=== PATIENT | male | born 1950 | race American Indian/Alaskan Native ===

== ENCOUNTER 2020-06-03 10:50 | Outpatient (REF) | payer OTHER, SELFPAY | END 2020-06-03 10:51 | disposition home or self-care (01) | LOC: HO.LAB 10:50 | PROVIDERS: Visit Provider Internal Medicine | DX: Z20.828 Contact with and (suspected) exposure to other viral communicable diseases (principal) | CPT/HCPCS: C9803; U0003 ==

== ENCOUNTER 2020-06-17 11:30 | Outpatient (REF) | payer OTHER, SELFPAY | END 2020-06-17 11:31 | disposition home or self-care (01) | LOC: HO.LAB 11:30 | PROVIDERS: PCP Internal Medicine; Visit Provider Internal Medicine | DX: Z20.828 Contact with and (suspected) exposure to other viral communicable diseases (principal) | CPT/HCPCS: 36415; C9803; U0003 ==

== ENCOUNTER → 2020-06-25 14:15 | Outpatient (BNVA) | payer OTHER, SELFPAY | PROVIDERS: PCP Internal Medicine; Visit Provider Internal Medicine Cardiovascular Disease | DX: I73.9 Peripheral vascular disease, unspecified (principal) | CPT/HCPCS: 93005; 99202 ==

== ENCOUNTER 2020-07-08 13:31 | Outpatient (REF) | payer OTHER, SELFPAY ==
--- NOTE | 2020-07-08 13:37 | US_ITS ---
EXAMINATION: COLOR-FLOW DUPLEX IMAGING OF THE BILATERAL LOWER EXTREMITY ARTERIAL SYSTEM. VELOCITY MEASUREMENTS THROUGHOUT THE FEMORAL ARTERIES WITH ANKLE-BRACHIAL PERIPHERAL ARTERIAL TESTING. CLINICAL INFORMATION: This is a 69-year-old male with peripheral vascular disease, unspecified. Interventional Radiologist: Brett Chakraborty M.D., F.S.I.R., F.A.C.R. RIGHT FEMORAL RUNOFF VELOCITIES: The right common femoral artery measures 149 cm/s and biphasic. The right profunda femoral artery is 303 cm/s and is biphasic. Right proximal superficial femoral artery measures 189 cm/s and biphasic. Mid superficial femoral artery is 341 cm/s and biphasic. Distal right superficial femoral artery measures 114 cm/s and is biphasic. Right popliteal velocity measures 62 cm/s and is biphasic. The posterior tibial artery velocity measures 20 cm/s and was biphasic. LEFT FEMORAL RUNOFF VELOCITIES: The left common femoral artery measures 180 cm/s and biphasic. The left profunda femoral artery is 166 cm/s and is biphasic. Left proximal superficial femoral artery is occluded. Mid superficial femoral artery is 96 cm/s and biphasic. Distal left superficial femoral artery measures 46 cm/s and is biphasic. Left popliteal velocity measures 44 cm/s and is biphasic. The posterior tibial artery velocity measures 17 cm/s and was monophasic. US/US arterial duplex LE BI IMPRESSION: 1. There is a high-grade hemodynamically significant stenosis in the mid right superficial femoral artery. 2. There is a high-grade hemodynamically significant stenosis in the proximal right profunda femoral artery. 3. There is occlusion of the proximal left superficial femoral artery.
== END 2020-07-08 13:32 | disposition home or self-care (01) ==
LOC: HO.US 13:31
PROVIDERS: PCP Internal Medicine; Visit Provider Internal Medicine Cardiovascular Disease
DX: I73.9 Peripheral vascular disease, unspecified (principal)
CPT/HCPCS: 93925

== ENCOUNTER → 2020-07-21 10:11 | Outpatient (BNVA) | payer OTHER, SELFPAY | PROVIDERS: PCP Internal Medicine; Visit Provider Internal Medicine Cardiovascular Disease | DX: I73.9 Peripheral vascular disease, unspecified (principal); Z95.1 Presence of aortocoronary bypass graft | CPT/HCPCS: 99212 ==

== ENCOUNTER → 2020-09-18 10:05 | Outpatient (BNVA) | payer OTHER, SELFPAY | PROVIDERS: PCP Internal Medicine; Visit Provider Internal Medicine Cardiovascular Disease | DX: I20.8 Other forms of angina pectoris (principal); I73.9 Peripheral vascular disease, unspecified; Z95.1 Presence of aortocoronary bypass graft | CPT/HCPCS: 99212 ==

== ENCOUNTER 2020-12-16 08:22 | Outpatient (REF) | payer MEDICARE, SELFPAY ==
[2020-12-16 09:23] LABS: Alanine Aminotransferase 13 U/L (0-40); Albumin Level 4.1 g/dL (3.5-5.0); Alkaline Phosphatase 58 U/L (39-117); Anion Gap 12 (12-20); Aspartate Amino Transferase 21 U/L (5-37); Bilirubin Total 0.6 mg/dL (0.0-1.0); Blood Urea Nitrogen 20 mg/dL (9-16); Calcium 9.6 mg/dL (8.4-10.2); Carbon Dioxide 27 mmol/L (22-29); Chloride 106 mmol/L (96-108); Cholesterol 109 mg/dL; Estimated Glomerular Filt Rate > 60; Glucose Fasting 100 mg/dL (60-99); HDL Cholesterol 38 mg/dL; Potassium 4.7 mmol/L (3.3-5.1); Sodium 140 mmol/L (135-145); Total Protein 7.1 g/dL (6.5-8.0)
[2020-12-16 09:28] LABS: LDL Cholesterol Calculated 56 mg/dl; Triglycerides 76 mg/dL
== END 2020-12-16 08:23 | disposition home or self-care (01) ==
LOC: HO.LAB 08:22
PROVIDERS: PCP Internal Medicine; Visit Provider Internal Medicine
DX: E78.5 Hyperlipidemia, unspecified (principal); I10 Essential (primary) hypertension
CPT/HCPCS: 36415; 80053; 80061

== ENCOUNTER → 2021-01-07 13:45 | Outpatient (BNVA) | payer MEDICARE, SELFPAY | PROVIDERS: PCP Internal Medicine; Referring Provider Internal Medicine; Visit Provider Internal Medicine Cardiovascular Disease | DX: I20.8 Other forms of angina pectoris (principal); Z95.1 Presence of aortocoronary bypass graft; I73.9 Peripheral vascular disease, unspecified | CPT/HCPCS: 93005; 99212 ==

== ENCOUNTER → 2021-02-06 09:30 | Outpatient (REF) | payer MEDICARE, SELFPAY | LOC: HO.CARD 09:30 | PROVIDERS: Visit Provider Internal Medicine Cardiovascular Disease | DX: Z13.89 Encounter for screening for other disorder (principal) ==

== ENCOUNTER → 2021-02-20 09:00 | Outpatient (REF) | payer MEDICARE, SELFPAY ==
--- NOTE | 2021-02-20 08:59 | CA_ITS ---
Transthoracic Echocardiogram Patient (Last, First, Middle): Nate Lepe, Gender: Male Date of : 1950 Age: 70 Procedure Date: 02/20/2021 Procedure Type: Transthoracic Echocardiogram Location: OP Height: 165.1 cm Weight: 52.16 kg BSA: 1.56 m2 Heart Rate: bpm BP: 142 / 70 mmHg Mail Handler Equipment Operator: YR/CP Referring MD: Jus Callejas MD Symptoms: I42.9 - Cardiomyopathy, unspecified Study Quality: Fair Conclusions: - The left ventricular systolic function is low normal. The visually estimated ejection fraction is between 50-55%. - The basal inferior and basal inferoseptal segments are akinetic. - There is mild to moderate mitral valve regurgitation. Findings Procedure Information The patient declines contrast. Left Ventricle Normal left ventricular cavity size. There is normal left ventricular wall thickness. The left ventricular systolic function is low normal. The visually estimated ejection fraction is between 50-55%. There is evidence of regional wall motion abnormalities. Abnormal diastolic function is noted. Spectral Doppler is indicative of a pseudonormal filling pattern. E/E prime ratio is between 8 and 15 consistent with indeterminate filling pressures. Wall Motion Rest Echo Findings The basal inferior and basal inferoseptal segments are akinetic. Right Ventricle Normal right ventricular cavity size and systolic function. Atria The left atrium is normal in size. The right atrium is mildly dilated. Aortic Valve There is a normal trileaflet aortic valve. There is no aortic valve stenosis. There is no aortic valve regurgitation. Mitral Valve Normal mitral valve structure and function. There is mild to moderate mitral valve regurgitation. There is no mitral valve stenosis. Pulmonic Valve Normal pulmonic valve structure and function. There is trace pulmonic valve regurgitation. Tricuspid Valve Normal tricuspid valve structure. There is mild tricuspid valve regurgitation. Normal right atrial pressure. There is no evidence of pulmonary hypertension. Great Vessels All visible segments of the aorta are normal in size. The visualized portions of the pulmonary artery and branches are normal. Venous The inferior vena cava is normal in size and collapses greater than 50% with inspiration. Pericardium/Pleural There is no evidence of pericardial effusion. Prior Study Comparison No prior study available for comparison. Measurements 2D Linear Measurements IVSd: 0.77 0.6-0.9/0.6-1.0 cm LVIDd: 4.85 3.9-5.3/4.2-5.9 cm LVIDd Index: 3.11 2.4-3.2/2.2-3.1 cm/m2 LVIDs: 3.48 2.0-3.6 cm LVPWd: 0.77 0.7-1.1 cm Ao Root: 3.40 2.1-3.5 cm LA Diam: 3.60 2.7-3.8/3.0-4.0 cm LAIDs Index: 2.31 1.5-2.3 cm/m2 LV Mass: 152.83 67-162/88-224 g LV Mass Index: 97.97 43-95/49-115 g/m2 LVOT Diam: 2.10 3.0+(-)1.3 cm 2D Systolic Function EF 4C: 62.30 >55% EF 2C: 49.10 >55% Mitral Valve MV Pk E: 0.83 MV PK A: 0.93 MV Decel Time: 147.00 E/A: 0.90 E'Lateral: 12.00 E'Medial: 6.96 E/E' Med: 11.90 E/E' Lat: 6.90 PHT: 43.00 MVA PHT: 5.12 Decel Worth: 5.65 Aortic Valve AoV Pk Rodrigo: 1.03 AoV Mn Rodrigo: 0.80 AoV VTI: 0.26 AoV Pk Grad: 4.00 Aov Mn Grad: 3.00 JUAQUIN Cont.VTI: 2.11 LVOT LVOT Pk Rodrigo: 0.63 LVOT Mn Rodrigo: 0.46 LVOT VTI: 0.16 LVOT Pk Grad: 2.00 LVOT Mn Grad: 1.00 LVOT Diam: 2.10 LVOT Area: 3.46 Diastolic Function MV Pk E: 0.83 MV Pk A: 0.93 E/A: 0.90 E'Medial: 6.96 E/E' Med: 11.90 E' Laterial: 12.00 E/E' Lat: 6.90 Right Ventricle TAPSE (mm): 1.69 TVS' Rodrigo: 8.49 Tricuspid Valve TR Pk Rodrigo: 2.51 TR Pk Grad: 25.00 RA Press: 3.00 RVSP: 28.00 Great Vessels Aorta Ao Root-2D: 3.40 2.0-3.7 cm Ao Asc: 3.10 2.1-3.4 cm Ao Arch: 2.60 Updated in Other Vendor System with Status of Final Jus Callejas MD electronically signed on 02/20/2021 9:01:17 PM with status of Final
== END ==
LOC: HO.CARD 09:00
PROVIDERS: Visit Provider Internal Medicine Cardiovascular Disease
DX: I42.9 Cardiomyopathy, unspecified (principal)
CPT/HCPCS: 93306

== ENCOUNTER → 2021-04-20 10:45 | Outpatient (BNVA) | payer MEDICARE, SELFPAY | PROVIDERS: PCP Internal Medicine; Referring Provider Internal Medicine; Visit Provider Internal Medicine Cardiovascular Disease | DX: I20.8 Other forms of angina pectoris (principal); I73.9 Peripheral vascular disease, unspecified; Z95.1 Presence of aortocoronary bypass graft | CPT/HCPCS: 99212 ==

== ENCOUNTER 2021-07-01 09:04 | Outpatient (REF) | payer MEDICARE, SELFPAY ==
[2021-07-01 11:05] LABS: Alanine Aminotransferase 20 U/L (0-40); Albumin Level 4.3 g/dL (3.5-5.0); Alkaline Phosphatase 68 U/L (39-117); Anion Gap 12 (12-20); Aspartate Amino Transferase 22 U/L (5-37); Bilirubin Total 0.8 mg/dL (0.0-1.0); Blood Urea Nitrogen 28 mg/dL (9-16); Calcium 9.9 mg/dL (8.4-10.2); Carbon Dioxide 27 mmol/L (22-29); Chloride 109 mmol/L (96-108); Cholesterol 126 mg/dL; Estimated Glomerular Filt Rate > 60; Glucose Fasting 113 mg/dL (60-99); HDL Cholesterol 46 mg/dL; LDL Cholesterol Calculated 67 mg/dl; Potassium 5.1 mmol/L (3.3-5.1); Sodium 143 mmol/L (135-145); Total Protein 7.5 g/dL (6.5-8.0); Triglycerides 66 mg/dL
== END 2021-07-01 09:05 | disposition home or self-care (01) ==
LOC: HO.LAB 09:04
PROVIDERS: PCP Internal Medicine; Visit Provider Internal Medicine
DX: I20.8 Other forms of angina pectoris (principal); E78.5 Hyperlipidemia, unspecified
CPT/HCPCS: 36415; 80053; 80061

== ENCOUNTER → 2021-08-10 13:53 | Outpatient (BNVA) | payer MEDICARE, SELFPAY | PROVIDERS: PCP Internal Medicine; Referring Provider Internal Medicine; Visit Provider Internal Medicine Cardiovascular Disease | DX: I20.8 Other forms of angina pectoris (principal); I70.203 Unspecified atherosclerosis of native arteries of extremities, bilateral legs; Z95.1 Presence of aortocoronary bypass graft | CPT/HCPCS: 99212 ==

== ENCOUNTER 2021-12-25 07:33 | Outpatient (REF) | payer OTHER, SELFPAY ==
[2021-12-25 08:56] LABS: Alanine Aminotransferase 18 U/L (0-40); Albumin Level 4.3 g/dL (3.5-5.0); Alkaline Phosphatase 65 U/L (39-117); Anion Gap 13 (12-20); Aspartate Amino Transferase 24 U/L (5-37); Bilirubin Total 1.1 mg/dL (0.0-1.0); Blood Urea Nitrogen 18 mg/dL (9-16); Calcium 9.3 mg/dL (8.4-10.2); Carbon Dioxide 25 mmol/L (22-29); Chloride 110 mmol/L (96-108); Cholesterol 114 mg/dL; Estimated Glomerular Filt Rate > 60; Glucose Fasting 99 mg/dL (60-99); HDL Cholesterol 43 mg/dL; LDL Cholesterol Calculated 59 mg/dl; Potassium 4.6 mmol/L (3.3-5.1); Sodium 143 mmol/L (135-145); Total Protein 7.2 g/dL (6.5-8.0); Triglycerides 61 mg/dL
== END 2021-12-25 07:34 | disposition home or self-care (01) ==
LOC: HO.LAB 07:33
PROVIDERS: PCP Internal Medicine; Visit Provider Internal Medicine
DX: I25.10 Atherosclerotic heart disease of native coronary artery without angina pectoris (principal); E78.5 Hyperlipidemia, unspecified
CPT/HCPCS: 36415; 80053; 80061

== ENCOUNTER → 2022-03-17 08:52 | Outpatient (BNVA) | payer OTHER, SELFPAY | PROVIDERS: PCP Internal Medicine; Visit Provider Internal Medicine Cardiovascular Disease | DX: I20.8 Other forms of angina pectoris (principal); I73.9 Peripheral vascular disease, unspecified; Z95.1 Presence of aortocoronary bypass graft | CPT/HCPCS: 93005; 99212 ==

== ENCOUNTER → 2022-07-21 08:43 | Outpatient (BNVA) | payer OTHER, SELFPAY | PROVIDERS: PCP Internal Medicine; Referring Provider Internal Medicine; Visit Provider Internal Medicine Cardiovascular Disease | DX: I20.8 Other forms of angina pectoris (principal); I73.9 Peripheral vascular disease, unspecified; R63.0 Anorexia; Z95.1 Presence of aortocoronary bypass graft | CPT/HCPCS: 99212 ==

== ENCOUNTER 2022-10-19 07:22 | Outpatient (REF) | payer OTHER, SELFPAY ==
[2022-10-19 12:06] LABS: Alanine Aminotransferase 12 U/L (0-40); Albumin Level 3.9 g/dL (3.5-5.0); Alkaline Phosphatase 57 U/L (39-117); Anion Gap 13 (12-20); Aspartate Amino Transferase 20 U/L (5-37); Bilirubin Total 0.8 mg/dL (0.0-1.0); Blood Urea Nitrogen 18 mg/dL (9-16); Carbon Dioxide 29 mmol/L (22-29); Chloride 107 mmol/L (96-108); Cholesterol 159 mg/dL; Estimated Glomerular Filt Rate > 60; Glucose Fasting 99 mg/dL (60-99); HDL Cholesterol 39 mg/dL; LDL Cholesterol Calculated 105 mg/dl; Potassium 3.8 mmol/L (3.3-5.1); Sodium 145 mmol/L (135-145); Total Protein 6.8 g/dL (6.5-8.0); Triglycerides 76 mg/dL
== END 2022-10-19 07:23 | disposition home or self-care (01) ==
LOC: HO.LAB 07:22
PROVIDERS: PCP Internal Medicine; Visit Provider Internal Medicine
DX: E78.5 Hyperlipidemia, unspecified (principal); I25.10 Atherosclerotic heart disease of native coronary artery without angina pectoris
CPT/HCPCS: 36415; 80053; 80061

== ENCOUNTER → 2022-12-15 08:48 | Outpatient (BNVA) | payer OTHER, SELFPAY | PROVIDERS: Visit Provider Internal Medicine Cardiovascular Disease | DX: R63.0 Anorexia (principal); I20.8 Other forms of angina pectoris | CPT/HCPCS: 93005; 99212 ==

== ENCOUNTER 2022-12-22 08:48 | Outpatient (AMB) | payer OTHER, SELFPAY ==
--- NOTE | 2022-12-22 08:50 | MHC.OFFVIS ---
Intake Vital Signs 12/22/22 08:53 Height 5 ft 5 in Weight 114 lb BMI 19.0 BP 142/65 H Blood Pressure Location Lt brachial Position Sitting Pulse 68 Intake Visit Reasons: Unintentional weight loss? Intake Note: Nate presents in the office as a new patient for weight loss. CC: He states that he has been losing weight. He states he has issues swallowing sometimes and loss of appetite. Director Social Required: Yes Director Social Name: [id number] Aturo Allergies No Known Allergies Allergy (Verified 12/22/22 08:53) HPI HPI Comments History of Present Illness Details 72 y.o M with PMH of CAD s/p CABG 2013, PVD, who is here for loss of appetite. Patient was seen with the help of a educational interpreter. Patient reports that every summer, he notices a decrease in his appetite in starts to prefer smaller meals, and then this returns to baseline when it is fall time. With this he also loses a few lb, and then regained stem during the winter time- which is also corroborated in the chart. No abdominal pain, nausea, vomiting, early satiety. He is unsure of the degree of weight loss so far, as does not weigh himself at home. Otherwise, has not noticed his clothing getting loose on him. He also does not report any obvious pain or difficulty swallowing however says that since 2012 (his CABG) has had intermittent sensation of food getting stuck. Pt has never had a colonoscopy and is adamant to not have one in future either. Weight curve 2020 to 2022. PFSH Surgical History S/P CABG x 3 Family History Father No problems noted. Mother No problems noted. Social History Housing: House Alcohol intake: never Patient Tobacco Use Status: Former Tobacco user Quit Date: 2012 Years Smoked: 30+ e-Cigarette/Vaping Use: Never Used Second Hand Smoke Exposure: No service: No Current occupational status: disabled Cognitive needs: No Hearing needs: No Vision needs: No Physical Exam Vital Signs: Last Vital Signs Pulse 68 12/22/22 08:53 BP 142/65 H 12/22/22 08:53 BMI result Body Mass Index 19.0 Gen appear: No acute distress, well nourished HEENT: no icterus, no cervical lymphadenopathy Chest: No overt resp distress CVS: S1/S2, regular Abd: soft, nontender, nondistended Psych: Stable affect, answering questions appropriately Neuro: A/Ox3 noted to move all extremities spontaneously Ext: no peripheral edema Assessment & Plan Assessment & Plan (1) Anorexia: Code(s): R63.0 - Anorexia (2) Globus sensation: Code(s): R09.89 - Other specified symptoms and signs involving the circulatory and respiratory systems Plan Reviewed with the pt that based on his hx and weight curve does not appear to have significant unintentional weight loss (i.e 10% weight loss in 6 months). Weight of 130lbs in Jul seems erroneous which hte pt agrees, states he weighs somewhere between 116-118 lbs. In terms of the appetite, no red flags to warrant urgent endoscopy however doyle initiate basic work up to rule out chronic infections, outlet obstruction, endocrinopathy etc. We will also obtain barium swallow for intermittent globus sensation that has been unchanged since 2013. Follow up in 6 weeks. Orders: Orders [place] barium swallow Today R63.0 - Anorexia Complete Blood Count no Diff Today R63.0 - Anorexia Comprehensive Met. Panel Today R63.0 - Anorexia Ferritin Today R63.0 - Anorexia IRON PROFILE Today R63.0 - Anorexia HIV Ab/Ag Today R63.0 - Anorexia Hepatitis A IgG Today R63.0 - Anorexia Hepatitis B Surface Antibody Today R63.0 - Anorexia Hepatitis B Core Antibody Today R63.0 - Anorexia Hepatitis B Surface Antigen Today R63.0 - Anorexia Hepatitis B Viral DNA Qn Today R63.0 - Anorexia Hemoglobin A1c Today R63.0 - Anorexia Hepatitis C Antibody Today R63.0 - Anorexia Transglutaminase IgA Today R63.0 - Anorexia Immunoglobulin A Today R63.0 - Anorexia Vitamin B12 and Folate Today R63.0 - Anorexia Vitamin D 25-OH Total Today R63.0 - Anorexia TSH reflex Free T4 Today R63.0 - Anorexia CT abdomen pelvis w IV con Today R63.0 - Anorexia Coding Level of Care Code New Pt Level 4 (07488) Diagnoses Anorexia R63.0 Globus sensation R09.89
[2022-12-22 08:53] VITALS: BP 142/65; PULSE 68; BMI 19.0
== END 2022-12-22 09:41 | disposition home or self-care (01) ==
PROVIDERS: PCP Internal Medicine; Visit Provider Internal Medicine
DX: R63.0 Anorexia (principal); R09.89 Other specified symptoms and signs involving the circulatory and respiratory systems
CPT/HCPCS: 99204

== ENCOUNTER → 2022-12-22 08:48 | Outpatient (BNVA) | payer OTHER, SELFPAY | PROVIDERS: PCP Internal Medicine; Visit Provider Internal Medicine | DX: R63.0 Anorexia (principal); R09.89 Other specified symptoms and signs involving the circulatory and respiratory systems | CPT/HCPCS: 99202 ==

== ENCOUNTER 2023-01-06 10:36 | Outpatient (REF) | payer OTHER, SELFPAY ==
[2023-01-06 11:00] LABS: Hematocrit 42.4 % (42.0-52.0); Hemoglobin 14.3 g/dl (14.0-18.0); Mean Corpuscular HGB Conc 33.7 g/dl (31.0-36.0); Mean Corpuscular Hemoglobin 31.4 pg (27.0-33.0); Mean Corpuscular Volume 93.2 fL (80.0-98.0); Mean Platelet Volume 10.1 fL (9.4-12.4); Platelet Count 270 X10*3/uL (160-400); Red Blood Count 4.55 X10*6/uL (4.60-5.80); White Blood Count 6.7 X10*3/uL (4.8-10.8)
[2023-01-06 11:12] LABS: Estimated Average Glucose 85 mg/dL; Hemoglobin A1c % 4.6 %
[2023-01-06 11:31] LABS: Alanine Aminotransferase 13 U/L (0-40); Albumin Level 4.2 g/dL (3.5-5.0); Alkaline Phosphatase 63 U/L (39-117); Anion Gap 16 (12-20); Aspartate Amino Transferase 18 U/L (5-37); Bilirubin Total 0.7 mg/dL (0.0-1.0); Blood Urea Nitrogen 15 mg/dL (9-16); Calcium 9.6 mg/dL (8.4-10.2); Carbon Dioxide 22 mmol/L (22-29); Chloride 108 mmol/L (96-108); Estimated Glomerular Filt Rate > 60; Glucose Random 138 mg/dL (60-115); Iron 111 mcg/dL (45-160); Percent Iron Saturation 38 % (15-50); Potassium 4.2 mmol/L (3.3-5.1); Sodium 142 mmol/L (135-145); Total Iron Binding Capacity 296 mcg/dL (228-428); Total Protein 7.6 g/dL (6.5-8.0); Unsaturated Iron Binding 185 ug/dL
[2023-01-06 11:54] LABS: Ferritin 47 ng/mL (20-250); Vitamin D 25-OH Total 36.9 ng/mL (>30)
[2023-01-06 11:58] LABS: Folate 8.4 ng/mL (> or = 4.0); Vitamin B12 640 pg/mL (200-900)
[2023-01-07 08:37] LABS: Hepatitis A Antibody IgG REACTIVE (Nonreactive); ~Hepatitis A Antibody IgG 11.27 S/CO (0.00-0.99)
[2023-01-07 08:48] LABS: HBS Num1 114.49 mIU/mL (0-7.99); HBc Num1 0.79 S/CO (0.00-0.79); HBsAGNum1 0.34 S/CO (0.00-0.99); HIV AB/AG Nonreactive (Nonreactive); HIV Num 1 0.06 S/CO (0.00-0.99); Hepatitis B Core Antibody Nonreactive (Nonreactive); Hepatitis B Surface Antigen Negative (Negative); ~HepC Num1 0.08 S/CO (0.00-0.79); ~Hepatitis B Surface Antibody REACTIVE (Nonreactive); ~Hepatitis C Antibody Nonreactive (Nonreactive)
[2023-01-08 16:39] LABS: Hepatitis B Viral DNA Qn - cp NOT DETECTED Log IU/mL (NOT DETECTED); Hepatitis B Viral DNA Qn-IU/mL NOT DETECTED (NOT DETECTED)
[2023-01-10 18:39] LABS: Transglutaminase IgA <1.0 U/mL
[2023-01-12 17:28] LABS: Immunoglobulin A 524 mg/dL (70-320)
== END 2023-01-06 10:37 | disposition home or self-care (01) ==
LOC: HO.LAB 10:36
PROVIDERS: PCP Internal Medicine; Visit Provider Internal Medicine
DX: Z11.4 Encounter for screening for human immunodeficiency virus [HIV] (principal); R63.0 Anorexia
CPT/HCPCS: 36415; 80053; 82306; 82607; 82728; 82746; 82784; 83036; 83540; 84443; 85027; 86364; 86704; 86706; 86708; 86803; 87340; 87389; 87517

== ENCOUNTER → 2023-02-02 09:56 | Outpatient (BNVA) | payer OTHER, SELFPAY | PROVIDERS: PCP Internal Medicine; Visit Provider Internal Medicine | DX: R63.0 Anorexia (principal); R09.89 Other specified symptoms and signs involving the circulatory and respiratory systems; R19.5 Other fecal abnormalities | CPT/HCPCS: 99212 ==

== ENCOUNTER 2023-02-02 09:58 | Outpatient (AMB) | payer OTHER, SELFPAY ==
[2023-02-02 10:05] VITALS: BP 148/64; PULSE 70; O2SAT 97; BMI 19.4
--- NOTE | 2023-02-02 10:05 | MHC.OFFVIS ---
Intake Vital Signs 02/02/23 10:05 Height 5 ft 5 in Weight 116 lb 13.52 oz BMI 19.4 BP 148/64 H Blood Pressure Location Lt brachial Position Sitting Pulse 70 Pulse Source Pulse Oximeter Pulse Oximetry (%) 97 Oxygen Delivery Method Room Air Intake Visit Reasons: 6 week fu Intake Note: Pt presents to the office today for a 6 week foloow up. Pt states he is feeling well. Pt denies any NVD. Allergies No Known Allergies Allergy (Verified 02/02/23 10:08) HPI HPI Comments History of Present Illness Details 72 y.o M with PMH of CAD s/p CABG 2013, PVD, who is here for follow up of loss of appetite. 12/22/22: Patient was seen with the help of a portable track crew chief. Patient reports that every summer, he notices a decrease in his appetite in starts to prefer smaller meals, and then this returns to baseline when it is fall time. With this he also loses a few lb, and then regained stem during the winter time- which is also corroborated in the chart. No abdominal pain, nausea, vomiting, early satiety. He is unsure of the degree of weight loss so far, as does not weigh himself at home. Otherwise, has not noticed his clothing getting loose on him. He also does not report any obvious pain or difficulty swallowing however says that since 2012 (his CABG) has had intermittent sensation of food getting stuck. Pt has never had a colonoscopy and is adamant to not have one in future either. Weight curve 2020 to 2022. 02/02/23: Pt is here with his . Seen with the help of portable track crew chief. CT scan was denied by insurance. Appeal pending. Barium swallow sunil for next month. Remaining labs normal. FIT ordered by PCP is ABNORMAL - results scanned 02/01. Pt reports appetite back to baseline. Weight is unchanged from last visit. [facility] S/P [facility] x 3 Family History Father No problems noted. Mother No problems noted. Social History Housing: House Alcohol intake: never Patient Tobacco Use Status: Former Tobacco user Quit Date: 2012 Years Smoked: 30+ e-Cigarette/Vaping Use: Never Used Second Hand Smoke Exposure: No service: No Current occupational status: disabled Cognitive needs: No Hearing needs: No Vision needs: No Review of Systems Const All systems reviewed & are unremarkable except as noted in HPI and below Physical Exam Vital Signs: Last Vital Signs Pulse 70 02/02/23 10:05 BP 148/64 H 02/02/23 10:05 Pulse Ox 97 02/02/23 10:05 Oxygen Delivery Method Room Air 02/02/23 10:05 BMI result Body Mass Index 19.4 Gen appear: No acute distress, well nourished HEENT: no icterus, no cervical lymphadenopathy Chest: No overt resp distress CVS: S1/S2, regular Abd: soft, nontender, nondistended Psych: Stable affect, answering questions appropriately Neuro: A/Ox3 noted to move all extremities spontaneously Ext: no peripheral edema Assessment & Plan Assessment & Plan (1) Anorexia: Code(s): R63.0 - Anorexia (2) Globus sensation: Code(s): R09.89 - Other specified symptoms and signs involving the circulatory and respiratory systems (3) Positive fecal immunochemical test: Code(s): R19.5 - Other fecal abnormalities Plan Reviewed with the pt that based on his hx and weight curve does not appear to have significant unintentional weight loss (i.e 10% weight loss in 6 months). In terms of the appetite, no red flags to warrant urgent endoscopy, barium swallow pending. He was informed of the abnormal FIT test which needs to be followed up with colonoscopy within 3-6 months to r/o CRC. He verbalises understanding of the seriousness of the abnormal FIT test result with the help of territory account manager. However despite an extensive discussion he remains hesitant to pursue a colonscopy. Reports main barrier as the liquid prep however when offered to send Sutab, still declined. was able to negotiate with him and encouraged him to think about it . Pt was again STRONGLY encouraged to consider getting the colonoscopy and to call us within 4 weeks. Reminder set to call him as well. Coding Level of Care Code Est Pt Level 4 (24108) Diagnoses Anorexia R63.0 Globus sensation R09.89 Positive fecal immunochemical test R19.5
== END 2023-02-02 11:16 | disposition home or self-care (01) ==
PROVIDERS: PCP Internal Medicine; Visit Provider Internal Medicine
DX: R63.0 Anorexia (principal); R09.89 Other specified symptoms and signs involving the circulatory and respiratory systems; R19.5 Other fecal abnormalities
CPT/HCPCS: 99214

== ENCOUNTER 2023-02-28 08:26 | Outpatient (REF) | payer OTHER, SELFPAY ==
[2023-02-28 08:40] LABS: MANUAL DIFF FLAG NO
[2023-02-28 08:50] LABS: Basophils Percent Auto 0.5 % (0-2); Eosinophils Absolute Auto 0.3 X10*3/uL (0.0-0.4); Eosinophils Percent Auto 4.1 % (0-4); Hematocrit 43.9 % (42.0-52.0); Hemoglobin 14.9 g/dl (14.0-18.0); Imm Gran Abs Auto 0.01 X10*3/uL (0.00-0.03); Imm Gran Pct Auto 0.1 % (0.0-0.4); Lymphocytes Absolute Auto 3.1 X10*3/uL (1.2-4.9); Lymphocytes Percent Auto 40.9 % (20-40); Mean Corpuscular HGB Conc 33.9 g/dl (31.0-36.0); Mean Corpuscular Hemoglobin 31.5 pg (27.0-33.0); Mean Corpuscular Volume 92.8 fL (80.0-98.0); Monocytes Percent Auto 12.5 % (2-11); Neutrophils Absolute Auto 3.2 x10*3/uL (2.0-8.3); Neutrophils Percent Auto 41.9 % (45-73); Platelet Count 292 X10*3/uL (160-400); Red Blood Count 4.73 X10*6/uL (4.60-5.80); Red Cell Distribution Width 12.7 % (11.0-16.0); White Blood Count 7.7 X10*3/uL (4.8-10.8)
[2023-02-28 09:30] LABS: Alanine Aminotransferase 13 U/L (0-40); Albumin Level 4.2 g/dL (3.5-5.0); Alkaline Phosphatase 69 U/L (39-117); Anion Gap 11 (12-20); Aspartate Amino Transferase 20 U/L (5-37); Bilirubin Total 0.9 mg/dL (0.0-1.0); Blood Urea Nitrogen 14 mg/dL (9-16); Calcium 9.5 mg/dL (8.4-10.2); Carbon Dioxide 28 mmol/L (22-29); Chloride 107 mmol/L (96-108); Cholesterol 113 mg/dL (<200); Estimated Glomerular Filt Rate > 60; Glucose Fasting 100 mg/dL (60-99); HDL Cholesterol 43 mg/dL (>40); LDL Cholesterol Calculated 57 mg/dL (<100); Potassium 4.3 mmol/L (3.3-5.1); Sodium 142 mmol/L (135-145); Total Protein 7.4 g/dL (6.5-8.0); Triglycerides 69 mg/dL (<150)
[2023-02-28 09:47] LABS: Thyroid Stimulating Hormone 2.51 uIU/mL (0.32-4.0)
== END 2023-02-28 08:27 | disposition home or self-care (01) ==
LOC: HO.LAB 08:26
PROVIDERS: PCP Internal Medicine; Visit Provider Internal Medicine
DX: R63.0 Anorexia (principal); E78.5 Hyperlipidemia, unspecified; I25.10 Atherosclerotic heart disease of native coronary artery without angina pectoris
CPT/HCPCS: 36415; 80053; 80061; 84443; 85025

== ENCOUNTER 2023-03-08 12:43 | Outpatient (AMB) | payer OTHER, SELFPAY ==
[2023-03-08 12:51] VITALS: BP 130/70; BMI 19.3
--- NOTE | 2023-03-08 12:51 | MHC.PC.OV ---
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 Plant Operator Required: No Accompanied by: Spouse Allergies No Known Allergies Allergy (Verified 03/08/23 13:06) Medication List - Last Reconciled 03/08/23 by Sheridan Yates MD amlodipine 10 mg PO DAILY aspirin (Adult Aspirin Regimen) 81 mg PO DAILY 90 days atorvastatin 20 mg PO DAILY 90 days cilostazol 50 mg PO BID docusate sodium 100 mg PO BID 90 days famotidine 20 mg PO BID 90 days lisinopril 20 mg PO DAILY 90 days meloxicam 15 mg PO DAILY 90 days metoprolol tartrate 50 mg PO BID 90 days multivitamin 1 tab PO DAILY 90 days pantoprazole 40 mg PO DAILY simethicone (Gas Relief (simethicone)) 250 mg (2 x 125 mg) PO BID PRN 30 days Tobacco use date assessed: 06/30/22 Fall risk assessment: No Falls in past year Last assessed Fall Risk: 03/08/23 Dental Screening Dental Screen Date: 03/08/23 Did you have a dental visit in the last 12 months?: Yes Did you have a dental problem in the last 6 months where you did not have access to dental care?: No Was dental information given to patient?: Patient has dentist HPI HPI Comments History of Present Illness Details This is a 72-year-old male with hypertension, peripheral vascular disease, GERD and hyperlipidemia comes today accompanied by partner for follow-up on his conditions. Blood pressure stable. On cilostazol for peripheral vascular disease which is follow by vascular surgery. GERD stable with PPIs and famotidine. Cholesterol well control. No chest pain or shortness of breath. Does not complain about claudication anymore. PFSH Surgical History S/P CABG x 3 Family History Father No problems noted. Mother No problems noted. Social History Housing: House Alcohol intake: never Patient Tobacco Use Status: Former Tobacco user Quit Date: 2013 Years Smoked: 30+ e-Cigarette/Vaping Use: Never Used Second Hand Smoke Exposure: No service: No Current occupational status: disabled Cognitive needs: No Hearing needs: No Vision needs: No Questionnaire Thrive Questionnaire Date Thrive assessed: 11/02/22 DERRICK-7 AMB Questionnaire DERRICK-7 Date DERRICK - 7 assessed: 11/02/22 Source: Developed by Drs. Kendrick Jerez, Bobbi Ghotra, Joshua Franco and colleagues, with an educational dayana from [employer]. Review of Systems Const All systems reviewed & are unremarkable except as noted in HPI and below Eyes Reports no additional complaints, Denies change in vision and Denies other visual disturbances Card Denies chest pain at rest, Denies chest pain with activity, Denies edema, Denies irregular heart rhythm, Denies claudication, Denies dyspnea, Denies dyspnea on exertion, Denies orthopnea, Denies paroxysmal nocturnal dyspnea and Denies slow heart rate Resp Denies cough, Denies dyspnea and Denies dyspnea on exertion GI Denies abdominal pain, Denies change in bowel habits, Denies excessive flatus, Denies nausea and Denies vomiting Denies urinary hesitancy, Denies urinary incontinence and Denies urinary urgency Musc Denies abnormal gait, Denies atrophy, Denies deformity and Denies limited range of motion Skin/Breast Denies bleeding lesions, Denies changing lesions and Denies rash Neuro Denies abnormal gait and Denies lack of coordination Physical exam (Primary Care) Vital Signs: Last Vital Signs BP 130/70 03/08/23 12:51 BMI result Body Mass Index 19.3 Tobacco/Smoking Status: Tobacco use Status Tobacco use date assessed 06/30/22 03/08/23 12:55 Patient Tobacco Use Status Former Tobacco user 03/08/23 12:55 e-Cigarette/Vaping Use Never Used 03/08/23 12:55 Thrive Assessment: Date of Thrive Assessment Date Thrive assessed 11/02/22 03/08/23 12:55 Eyes General: appearance normal, both eyes and all related structures Eyelids: Yes eyelids normal Conjunctivae: conjunctivae normal Neck Neck: Yes normal visual inspection and Yes supple Resp Effort & Inspection: normal respiratory effort Auscultation: clear to auscultation bilaterally Cardio Jugular venous distension: no JVD Rate: regular rate Rhythm: regular rhythm Heart sounds: S1 normal heart sound present and S2 normal heart sound present Extrem General: Yes full ROM Assessment and Plan Assessment & Plan (1) HTN (hypertension): Code(s): I10 - Essential (primary) hypertension Qualifiers: Hypertension type: essential hypertension Qualified Code(s): I10 - Essential (primary) hypertension Plan: Continue lisinopril. Blood pressure goal is equal or less than 130/80. (2) HLD (hyperlipidemia): Code(s): E78.5 - Hyperlipidemia, unspecified Qualifiers: Hyperlipidemia type: mixed hyperlipidemia Qualified Code(s): E78.2 - Mixed hyperlipidemia Plan: Continue statins. LDL goal is less than 70. (3) GERD (gastroesophageal reflux disease): Code(s): K21.9 - Gastro-esophageal reflux disease without esophagitis Qualifiers: Esophagitis presence: without esophagitis Qualified Code(s): K21.9 - Gastro-esophageal reflux disease without esophagitis Plan: Continue famotidine and PPIs. (4) PVD (peripheral vascular disease): Comment: As below Code(s): I73.9 - Peripheral vascular disease, unspecified Plan: Continue cilostazol. Orders: Orders Lipid Panel 4 Months E78.5 - Hyperlipidemia, unspecified Comprehensive [place]. Panel Fast 4 Months I10 - Essential (primary) hypertension Medications: Refilled multivitamin 1 tab PO DAILY 90 tabs 2RF 90 days Coding Level of Care Code Est Pt Level 4 (88216) Diagnoses Essential hypertension I10 Hypertension type: essential hypertension Mixed hyperlipidemia E78.2 Hyperlipidemia type: mixed hyperlipidemia Gastroesophageal reflux disease without esophagitis K21.9 Esophagitis presence: without esophagitis PVD (peripheral vascular disease) I73.9 Time Spent (min) 22
== END 2023-03-08 13:12 | disposition home or self-care (01) ==
PROVIDERS: Visit Provider Internal Medicine
DX: I10 Essential (primary) hypertension (principal); E78.2 Mixed hyperlipidemia; K21.9 Gastro-esophageal reflux disease without esophagitis; I73.9 Peripheral vascular disease, unspecified
CPT/HCPCS: 99214

== ENCOUNTER 2023-04-25 09:15 | Outpatient (AMB) | payer OTHER, SELFPAY ==
[2023-04-25 09:38] VITALS: BP 130/72; PULSE 76; BMI 19.8
--- NOTE | 2023-04-25 09:38 | A.OFFVIS_ITS ---
Intake Vital Signs 04/25/23 09:38 Height 5 ft 5 in Weight 119 lb 0.794 oz BMI 19.8 BP 130/72 Blood Pressure Location Lt brachial Position Sitting Pulse 76 Pulse Source Pulse Oximeter Intake Visit Reasons: 4 mth f/up Carousel Attendant Required: Yes Carousel Attendant Language: Vamp Strap Ironer Name: domi watson [id number] Clinical Informatics Physician: Clinical Informatics Physician Present Accompanied by: Significant Other Allergies No Known Allergies Allergy (Verified 04/25/23 09:40) Medication List - Last Reconciled 04/25/23 by Jus Callejas MD amlodipine 10 mg PO DAILY aspirin (Adult Aspirin Regimen) 81 mg PO DAILY 90 days atorvastatin 20 mg PO DAILY 90 days cilostazol 50 mg PO BID docusate sodium 100 mg PO BID 90 days famotidine 20 mg PO BID 90 days lisinopril 20 mg PO DAILY 90 days meloxicam 15 mg PO DAILY 90 days metoprolol tartrate 50 mg PO BID 90 days multivitamin 1 tab PO DAILY 90 days pantoprazole 40 mg PO DAILY simethicone (Gas Relief (simethicone)) 250 mg (2 x 125 mg) PO BID PRN 30 days HPI HPI Comments History of Present Illness Details Very pleasant 71-year-old gentleman with background history of coronary arteries bypass surgery performed in 2012. It appears he has 3 bypasses with FAULKNER to LAD, vein graft to diagonal and vein graft to OM. Based on records at [facility] his ejection fraction was initially low but as of an echocardiogram in 2018 his LVEF is 50-55% with inferior scar. He said before CABG he had burning chest discomfort with exercise. This has not happened since the bypass surgery. In 2013 he had peripheral angiography by Dr. Nixon and underwent right common iliac as well as left external iliac artery stenting. He had PRODUCT DESIGNER of the left SFA at that time. He also had severe right SFA stenosis at that time. He is complaining that he has leg pain when he walks 1 block. He is pointing to thighs as well as both calves. No open wounds or ulcers on the feet. No nighttime symptoms. He has been compliant with medications. He does not smoke but is a former smoker. At this stage he was referred for ankle-brachial index and ultrasound assessment. ABIs were abnormal and he was found to have a high-grade stenosis in the right SFA and occluded left SFA. He also was noticed to have a high-g rade hemodynamically significant stenosis in the proximal right profundus artery. He returns for f/u. 07/21/22: He has been doing well and does not have significant claudication. He is complaining of anorexia and weight loss. He has never had a colonoscopy. He has some GI upset which can be due to cilostazol but he has been experiencing anorexia and weight loss. We referred him to GI for further work up. It appears he did not show up for the appointment. 12/15/22: He is here for follow-up. He i s saying that things are stable he still has mild claudication but does not have any progressive symptoms. He is tolerating the us last dose all at 50 mg twice a day. He continues to have anorexia and does not feel like eating anything. He never had any colonoscopy. We discussed about previous referral to GI and he is saying that he has not received any calls. We will arrange an appointment for him. No chest discomfort shortness of breath. 04/25/23: He returns for follow-up. He is denying chest discomfort. He is saying that his claudication has improved since he has been taking cilostazol. Taking medications regularly. He has seen GI and will be considering EGD. He was also advised to do colonoscopy but he has not made up his mind. [facility] Surgical History S/P CABG x 3 Family History Father No problems noted. Mother No problems noted. Social History Housing: House Alcohol intake: never Patient Tobacco Use Status: Former Tobacco user Quit Date: 2012 Years Smoked: 30+ e-Cigarette/Vaping Use: Never Used Second Hand Smoke Exposure: No service: No Current occupational status: disabled Cognitive needs: No Hearing needs: No Vision needs: No Review of Systems ENT Reports dizziness Card Denies chest pain, Denies chest pain at rest, Denies chest pain with activity, Denies rapid heart rate, Denies pedal edema, Denies edema, Denies leg edema, Denies lightheadedness, Denies palpitations, Denies dyspnea, Denies dyspnea on exertion and Denies orthopnea Resp Denies cough, Denies dyspnea and Denies dyspnea on exertion GI Denies hematochezia and Denies change in stool character Musc Denies abnormal gait, Reports limited range of motion, Reports muscle cramps, Denies muscle weakness, Denies numbness, Denies radiating pain into limb, Denies stiffness and Denies tingling Neuro Denies abnormal gait, Reports dizziness, Denies numbness and Denies tingling Endo Denies palpitations Physical Exam Vital Signs: Last Vital Signs Pulse 76 04/25/23 09:38 BP 130/72 04/25/23 09:38 BMI result Body Mass Index 19.8 GENERAL APPEARANCE: in no acute distress, well developed, well nourished. HEENT: unremarkable. HEAD: normocephalic, atraumatic. NECK/THYROID: no carotid bruit, no jugular venous distention. SKIN: no suspicious lesions, warm and dry. HEART: no murmurs, regular rate and rhythm, S1, S2 normal. LUNGS: clear to auscultation bilaterally. ABDOMEN: normal, bowel sounds present, soft, nontender, nondistended. EXTREMITIES: no clubbing, cyanosis, or edema. NEUROLOGIC: nonfocal, alert and oriented. Assessment & Plan Assessment & Plan (1) Stable angina: Code(s): I20.8 - Other forms of angina pectoris (2) S/P CABG x 3: Comment: Stable Code(s): Z95.1 - Presence of aortocoronary bypass graft (3) Claudication: Comment: With ultrasound duplex showing severe right SFA and profunda disease as well as occluded left SFA. Feeling better with Cilostazol. Code(s): I73.9 - Peripheral vascular disease, unspecified Plan Pleasant 72-year-old gentleman who is here for follow-up. He has been doing well and has no anginal symptoms. Blood pressure control is good. He has peripheral vascular disease and was started on cilostazol and has been doing well since then. I have advised him to increase the cilostazol to 100 mg twice a day. He is undergoing workup with GI with EGD. He is intermediate risk for perioperative cardiovascular complications. I have advised him to do colonoscopy also. Thank you for allowing me to participate in the care of your patient. Please feel free to contact me if you have any questions. Medications: New cilostazol 100 mg PO BID 100 tabs 3RF Coding Level of Care Code Est Pt Level 4 (12941) Diagnoses Stable angina I20.8 S/P CABG x 3 Z95.1 Claudication I73.9
== END 2023-04-25 10:01 | disposition home or self-care (01) ==
PROVIDERS: PCP Internal Medicine; Visit Provider Internal Medicine Cardiovascular Disease
DX: I20.8 Other forms of angina pectoris (principal); Z95.1 Presence of aortocoronary bypass graft; I73.9 Peripheral vascular disease, unspecified
CPT/HCPCS: 99214

== ENCOUNTER → 2023-04-25 09:15 | Outpatient (BNVA) | payer OTHER, SELFPAY | PROVIDERS: PCP Internal Medicine; Visit Provider Internal Medicine Cardiovascular Disease | DX: I20.89 Other forms of angina pectoris (principal); I73.9 Peripheral vascular disease, unspecified; Z95.1 Presence of aortocoronary bypass graft | CPT/HCPCS: 99212 ==

== ENCOUNTER 2023-06-21 07:42 | Outpatient (REF) | payer OTHER, SELFPAY | END 2023-06-21 07:43 | disposition home or self-care (01) | LOC: HO.XRAY 07:42 | PROVIDERS: PCP Internal Medicine; Visit Provider Internal Medicine | DX: Z13.89 Encounter for screening for other disorder (principal) ==

== ENCOUNTER 2023-07-04 07:47 | Outpatient (REF) | payer OTHER, SELFPAY ==
[2023-07-04 09:11] LABS: Alanine Aminotransferase 13 U/L (0-40); Albumin Level 4.2 g/dL (3.5-5.0); Alkaline Phosphatase 70 U/L (39-117); Anion Gap 11 (12-20); Aspartate Amino Transferase 18 U/L (5-37); Bilirubin Total 0.9 mg/dL (0.0-1.0); Blood Urea Nitrogen 15 mg/dL (9-16); Calcium 9.5 mg/dL (8.4-10.2); Carbon Dioxide 28 mmol/L (22-29); Chloride 108 mmol/L (96-108); Cholesterol 112 mg/dL (<200); Estimated Glomerular Filt Rate > 60; Glucose Fasting 110 mg/dL (60-99); HDL Cholesterol 45 mg/dL (>40); LDL Cholesterol Calculated 54 mg/dL (<100); Potassium 4.4 mmol/L (3.3-5.1); Sodium 143 mmol/L (135-145); Total Protein 7.5 g/dL (6.5-8.0); Triglycerides 66 mg/dL (<150)
== END 2023-07-04 07:48 | disposition home or self-care (01) ==
LOC: HO.LAB 07:47
PROVIDERS: PCP Internal Medicine; Visit Provider Internal Medicine
DX: E78.5 Hyperlipidemia, unspecified (principal); I10 Essential (primary) hypertension
CPT/HCPCS: 36415; 80053; 80061

== ENCOUNTER 2023-07-12 13:36 | Outpatient (AMB) | payer OTHER, SELFPAY ==
[2023-07-12 13:49] VITALS: BP 130/70; BMI 20.1
--- NOTE | 2023-07-12 13:49 | A.OFFPC_ITS ---
Vital Signs 07/12/23 13:49 Height 5 ft 5 in Weight 121 lb BMI 20.1 BP 130/70 Blood Pressure Location Lt brachial Position Sitting Intake Visit Reasons: bp Intake Note: Patient here for a follow up BP Hat Brusher Machine Required: No Accompanied by: Significant Other Allergies No Known Allergies Allergy (Verified 07/12/23 13:57) Medication List - Last Reconciled 07/12/23 by Sheridan Yates MD amlodipine 10 mg PO DAILY aspirin (Adult Aspirin Regimen) 81 mg PO DAILY 90 days atorvastatin 20 mg PO DAILY 90 days cilostazol 100 mg PO BID docusate sodium 100 mg PO BID 90 days famotidine 20 mg PO BID 90 days lisinopril 20 mg PO DAILY 90 days meloxicam 15 mg PO DAILY 90 days metoprolol tartrate 50 mg PO BID 90 days multivitamin 1 tab PO DAILY 90 days pantoprazole 40 mg PO DAILY simethicone (Gas Relief (simethicone)) 250 mg (2 x 125 mg) PO BID PRN 30 days Tobacco use date assessed: 07/12/23 Fall risk assessment: No Falls in past year Last assessed Fall Risk: 07/12/23 Dental Screening Dental Screen Date: 07/12/23 Did you have a dental visit in the last 12 months?: Yes Did you have a dental problem in the last 6 months where you did not have access to dental care?: No Was dental information given to patient?: Patient has dentist HPI HPI Comments History of Present Illness Details This is a 72-year-old male with hypertension, hyperlipidemia, peripheral vascular disease, GERD and constipation that comes accompanied by girlfriend Vidya for follow-up on his conditions. Blood pressure stable. Cholesterol well control. Has peripheral vascular disease with claudication that has improved with cilostazol and this is follow by vascular surgery. GERD stable with famotidine and pantoprazole. Constipation well controlled with medications and was advised to have a high-fiber diet. No chest pain or shortness of breath. PFSH Surgical History S/P CABG x 3 Family History Father No problems noted. Mother No problems noted. Social History Housing: House Alcohol intake: never Patient Tobacco Use Status: Former Tobacco user Quit Date: 2012 Years Smoked: 30+ e-Cigarette/Vaping Use: Never Used Second Hand Smoke Exposure: No service: No Current occupational status: disabled Cognitive needs: No Hearing needs: No Vision needs: No Questionnaire PHQ-9 Over the last 2 weeks, how often have you been bothered by any of the following problems? 1. Little interest or pleasure in doing things: not at all 2. Feeling down, depressed, or hopeless: not at all 3. Trouble falling or staying asleep, or sleeping too much: not at all 4. Feeling tired or having little energy: not at all 5. Poor appetite or overeating: not at all 6. Feeling bad about yourself - or that you are a failure or have let yourself or your family down: not at all 7. Trouble concentrating on things, such as reading the newspaper or watching television: not at all 8. Moving or speaking so slowly that other people could have noticed. Or the opposite - being so fidgety or restless that you have been moving around a lot more than usual: not at all 9. Thoughts that you would be better off or of hurting yourself in some way: not at all Total score: 0 Depression Screening Interpretation: Negative Depression Screening Done: Yes 82185 - PHQ-9 Billing: Yes Source: Developed by Drs. Kendrick Jerez, Bobbi Ghotra, Joshua Franco and colleagues, with an educational dayana from [employer]. Thrive Questionnaire Date Thrive assessed: 07/12/23 I am a: Patient What is your living situation today?: I have a steady place to live Within the past 12 months, did the food you bought not last and you didn't have the money to get more?: Never true Within the past 12 months, did you worry whether your food would run out before you got money to buy more?: Never true Do you have trouble paying for medicines?: No Do you have trouble getting transportation to medical appointments?: No Do you have trouble paying your heating and electricity bill?: No Do you have trouble taking care of your child, family member or friend?: No Do you have trouble with day-to-day activities such as bathing, preparing meals, shopping, managing finances, etc.?: No Are you currently unemployed and looking for a job?: No Are you interested in more education?: No Please select the resources that you would like help with: None Currently or been in a relationship where the following occur: no concerns reported THRIVE Score: 0 AUDIT C Alcohol Use Questionnaire (AUDIT-C) 1. How often do you have a drink containing alcohol?: Never Total Score: 0 Score Reviewed/Action Taken: No DERRICK-7 AMB Questionnaire DERRICK-7 Date DERRICK - 7 assessed: 07/12/23 Feeling nervous, anxious, or on edge: 0 = Not at all Not being able to stop or control worryin = Not at all Worrying too much about different things: 0 = Not at all Trouble relaxin = Not at all Being so restless that it is hard to sit still: 0 = Not at all Becoming easily annoyed or irritable: 0 = Not at all Feeling afraid as if something awful might happen: 0 = Not at all Total DERRICK-7 score (0-4 normal; 5-9 mild; 10-14 moderate; 15-21 severe): 0 Source: Developed by Drs. Kendrick Jerez, Bobbi Ghotra, Joshua Franco and colleagues, with an educational dayana from [employer]. DERRICK-7 Assessment Billing DERRICK-7 Assessment Tool: DERRICK-7 Assessment 92406 Review of Systems Const All systems reviewed & are unremarkable except as noted in HPI and below Eyes Reports no additional complaints, Denies change in vision and Denies other visual disturbances Card Denies chest pain at rest, Denies chest pain with activity, Denies edema, Denies irregular heart rhythm, Denies claudication, Denies dyspnea, Denies dyspnea on exertion, Denies orthopnea, Denies paroxysmal nocturnal dyspnea and Denies slow heart rate Resp Denies cough, Denies dyspnea and Denies dyspnea on exertion GI Denies abdominal pain, Denies change in bowel habits, Denies excessive flatus, Denies nausea and Denies vomiting Denies urinary hesitancy, Denies urinary incontinence and Denies urinary urgency Musc Denies abnormal gait, Denies atrophy, Denies deformity and Denies limited range of motion Skin/Breast Denies bleeding lesions, Denies changing lesions and Denies rash Neuro Denies abnormal gait, Denies behavioral changes and Denies lack of coordination Psych Denies behavioral changes Physical exam (Primary Care) Vital Signs: Last Vital Signs BP 130/70 07/12/23 13:49 BMI result Body Mass Index 20.1 Tobacco/Smoking Status: Tobacco use Status Tobacco use date assessed 07/12/23 07/12/23 13:53 Patient Tobacco Use Status Former Tobacco user 07/12/23 13:53 e-Cigarette/Vaping Use Never Used 07/12/23 13:53 PHQ-9: PHQ-9 Score PHQ-9: Total score 0 07/12/23 14:01 Depression Screening Interpretation: Negative Thrive Assessment: Date of Thrive Assessment Date Thrive assessed 07/12/23 07/12/23 13:53 Currently or been in a relationship where the following occur: no concerns reported Eyes General: appearance normal, both eyes and all related structures Eyelids: Yes eyelids normal Conjunctivae: conjunctivae normal Neck Neck: Yes normal visual inspection and Yes supple Resp Effort & Inspection: normal respiratory effort Auscultation: clear to auscultation bilaterally Cardio Jugular venous distension: no JVD Rate: regular rate Rhythm: regular rhythm Heart sounds: S1 normal heart sound present and S2 normal heart sound present Extrem General: Yes full ROM Office Procedures Flu Questionnaire Does the patient have a severe egg allergy?: No Immunizations flu vacc [id number] 6mos up(PF) 60 mcg(15 mcgx4)/0.5 mL IM syringe Performing Provider: Sheridan Yates MD [facility] Documented (not given) by: OSEI Stout on 07/12/23 13:53 Reason Not Given: Patient Refused Assessment and Plan Assessment & Plan (1) HTN (hypertension): Code(s): I10 - Essential (primary) hypertension Qualifiers: Hypertension type: essential hypertension Qualified Code(s): I10 - Essential (primary) hypertension Plan: Continue amlodipine and lisinopril. Blood pressure goal is equal or less than 130/80. (2) HLD (hyperlipidemia): Code(s): E78.5 - Hyperlipidemia, unspecified Qualifiers: Hyperlipidemia type: mixed hyperlipidemia Qualified Code(s): E78.2 - Mixed hyperlipidemia Plan: Continue statins. LDL goal is less than 70. (3) GERD (gastroesophageal reflux disease): Code(s): K21.9 - Gastro-esophageal reflux disease without esophagitis Qualifiers: Esophagitis presence: without esophagitis Qualified Code(s): K21.9 - Gastro-esophageal reflux disease without esophagitis Plan: Continue famotidine and pantoprazole. (4) PVD (peripheral vascular disease): Comment: As below Code(s): I73.9 - Peripheral vascular disease, unspecified Plan: Continue cilostazol. Follow-up with vascular surgery. (5) Constipation: Code(s): K59.00 - Constipation, unspecified Plan: Continue docusate as needed for constipation. Orders: Orders Lipid Panel 5 Months E78.5 - Hyperlipidemia, unspecified Comprehensive Terrell. Panel Fast 5 Months I25.10 - Atherosclerotic heart disease of campo coronary artery without angina pectoris Influenza [id number] Immunization Today Z23 - Encounter for immunization Coding Level of Care Code Est Pt Level 4 (75839) Diagnoses Essential hypertension I10 Hypertension type: essential hypertension Mixed hyperlipidemia E78.2 Hyperlipidemia type: mixed hyperlipidemia Gastroesophageal reflux disease without esophagitis K21.9 Esophagitis presence: without esophagitis PVD (peripheral vascular disease) I73.9 Constipation K59.00 Additional Codes DERRICK-7 Assessment Billing - DERRICK-7 Assessment Tool: DERRICK-7 Assessment 61088 ([id number]) Time Spent (min) 23
== END 2023-07-12 14:06 | disposition home or self-care (01) ==
PROVIDERS: PCP Internal Medicine; Visit Provider Internal Medicine
DX: I10 Essential (primary) hypertension (principal); I73.9 Peripheral vascular disease, unspecified; E78.2 Mixed hyperlipidemia; K21.9 Gastro-esophageal reflux disease without esophagitis; K59.00 Constipation, unspecified
CPT/HCPCS: 99214

== ENCOUNTER 2023-07-21 08:32 | Outpatient (REF) | payer OTHER, SELFPAY ==
--- NOTE | ~2023-07-21 | FL_ITS ---
EXAMINATION: FL BARIUM SWALLOW CLINICAL INFORMATION: Anorexia, dyspepsia, reflux, known hiatus hernia, dysphasia hypopharyngeal phase ever since heart surgery and intubation . COMPARISON: No prior. TECHNIQUE: Fluoroscopic air contrast upper GI examination was performed utilizing standard techniques with thin and thick barium and effervescent granules. Numerous spot images were obtained. Several fluoroscopic image hold cine sequences were also obtained. FINDINGS: Patient is edentulous. Sternal wires are noted. Three-vessel CABG noted. Lateral cine images of the oropharynx and hypopharynx demonstrate normal swallow mechanism with normal epiglottic inversion and soft palate elevation. Extensive pooling in the piriform sinuses and vallecula was present which did clear on several subsequent swallows. No tracheal penetration or gross glottic or subglottic aspiration present. Marked cricopharyngeal achalasia was present on all swallows, and a small Zenker's diverticulum was present just above the cricopharyngeus muscle. A small amount of barium continually pooled within the Zenker's. There was mild ballooning of the hypopharynx on swallows. Dual and single contrast images of the esophagus demonstrate normal caliber, contour, and mucosal pattern. No evidence of stricture, mass, or ulcerations identified. Esophageal peristalsis was disordered, with to and fro movement of the barium column within the esophagus due to nonpropulsive tertiary contractions. Small type I hiatus hernia is noted. There was episodic mild gastroesophageal reflux to the level of the aortic arch during the exam. There is narrowing of the GE junction identified, with an appearance most likely related to mild to moderate achalasia. Dual contrast and single contrast images of the stomach demonstrated thickened rugal folds throughout the fundus and body of the stomach, and also likely the antrum. There may be a few small hyperplastic polyps in the region of the fundus. Contrast freely passed into the gastric antrum and duodenal bulb without delay. Single and air-contrast images of the duodenal bulb demonstrate no abnormality. The duodenal sweep has a normal appearance, course, and mucosal fold appearance. No malrotation. The imaged proximal jejunum has a normal fold pattern and caliber. FLUOROSCOPY TIME: 5 minutes 9 seconds Number of Spot Images: 9 Number of cines obtained: 14 DOSE AREA PRODUCT: 1659 uGy-m2 (microgray-meter squared) FL/FL barium swallow IMPRESSION: 1. Cricopharyngeal achalasia, somewhat profound, with a small Zenker's diverticulum just above the cricopharyngeus muscle. 2. Consistent pooling of contrast within the piriform sinuses and vallecula, with mild ballooning of the hypopharynx on swallow. 3. Disordered peristalsis of the esophagus, which is mildly patulous. 4. Narrowing of the GE junction with a smooth appearance is likely secondary to moderate achalasia. 5. Thickened rugal folds throughout the stomach, with at least one or 2 hyperplastic polyps present, consistent with gastritis. 6. Small type I hiatus hernia. 7. Mild gastroesophageal reflux to the level of the amira. Suggest GI consultation with correlation with EGD.
== END 2023-07-21 08:33 | disposition home or self-care (01) ==
LOC: HO.XRAY 08:32
PROVIDERS: PCP Internal Medicine; Visit Provider Internal Medicine
DX: R63.0 Anorexia (principal)
CPT/HCPCS: 74220

== ENCOUNTER → 2023-07-21 08:33 | Outpatient (BNV) | payer OTHER, SELFPAY | PROVIDERS: PCP Internal Medicine; Visit Provider Radiology Diagnostic Radiology | DX: R63.0 Anorexia (principal); K44.9 Diaphragmatic hernia without obstruction or gangrene; R47.02 Dysphasia | CPT/HCPCS: 74221 ==

== ENCOUNTER 2023-10-24 10:29 | Outpatient (AMB) | payer OTHER, SELFPAY ==
[2023-10-24 11:10] VITALS: BP 140/72; PULSE 67; O2SAT 100
--- NOTE | 2023-10-24 11:10 | MHC.OFFVIS ---
Vital Signs 10/24/23 11:10 Height 5 ft 5 in Weight 120 lb 5.958 oz BMI 20.0 BP 140/72 H Blood Pressure Location Lt brachial Position Sitting Pulse 67 Pulse Source Pulse Oximeter Pulse Oximetry (%) 100 Intake Visit Reasons: 6 mthf /up Diamond Powder Technician Required: Yes Diamond Powder Technician Name: [id number] Accompanied by: Self / Same As Patient Allergies No Known Allergies Allergy (Verified 07/12/23 13:57) Medication List - Last Reconciled 10/24/23 by Jus Callejas MD amlodipine 10 mg PO DAILY aspirin (Adult Aspirin Regimen) 81 mg PO DAILY 90 days atorvastatin 20 mg PO DAILY 90 days cilostazol 100 mg PO BID 90 days docusate sodium 100 mg PO BID 90 days famotidine 20 mg PO BID 90 days lisinopril 20 mg PO DAILY 90 days meloxicam 15 mg PO DAILY 90 days metoprolol tartrate 50 mg PO BID 90 days multivitamin 1 tab PO DAILY 90 days pantoprazole 40 mg PO DAILY simethicone (Gas Relief (simethicone)) 250 mg (2 x 125 mg) PO BID PRN 30 days HPI Comments Details: Very pleasant 73-year-old gentleman with background history of coronary arteries bypass surgery performed in 2012. It appears he has 3 bypasses with FAULKNER to LAD, vein graft to diagonal and vein graft to OM. Based on records at [facility] his ejection fraction was initially low but as of an echocardiogram in 2018 his LVEF is 50-55% with inferior scar. He said before CABG he had burning chest discomfort with exercise. This has not happened since the bypass surgery. In 2013 he had peripheral angiography by Dr. Nixon and underwent right common iliac as well as left external iliac artery stenting. He had [employer] of the left SFA at that time. He also had severe right SFA stenosis at that time. He is complaining that he has leg pain when he walks 1 block. He is pointing to thighs as well as both calves. No open wounds or ulcers on the feet. No nighttime symptoms. He has been compliant with medications. He does not smoke but is a former smoker. At this stage he was referred for ankle-brachial index and ultrasound assessment. ABIs were abnormal and he was found to have a high-grade stenosis in the right SFA and occluded left SFA. 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 He returns for f/u. 07/21/22: He has been doing well and does not have significant claudication. He is complaining of anorexia and weight loss. He has never had a colonoscopy. He has some GI upset which can be due to cilostazol but he has been experiencing anorexia and weight loss. We referred him to GI for further work up. It appears he did not show up for the appointment. 12/15/22: He is here for follow-up. He is saying that things are stable he still has mild claudication but does not have any progressive symptoms. He is tolerating the us last dose all at 50 mg twice a day. He continues to have anorexia and does not feel like eating anything. He never had any colonoscopy. We discussed about previous referral to GI and he is saying that he has not received any calls. We will arrange an appointment for him. No chest discomfort shortness of breath. 04/25/23: He returns for follow-up. He is denying chest discomfort. He is saying that his claudication has improved since he has been taking cilostazol. Taking medications regularly. He has seen GI and will be considering EGD. He was also advised to do colonoscopy but he has not made up his mind. 10/24/2023: He returns for follow-up. Denying any chest discomfort shortness of breath. He continues to get some claudication but saying that he can walk up to 1-1/2 block and then gets claudication symptoms. He is tolerating cilostazol. Blood pressure is elevated and manual recheck by myself was 150/70. He has been taking medications regularly otherwise. [facility] Surgical History S/P CABG x 3 Family History Father No problems noted. Mother No problems noted. Social History Housing: House Alcohol intake: never Patient Tobacco Use Status: Former Tobacco user Quit Date: 2012 Years Smoked: 30+ e-Cigarette/Vaping Use: Never Used Second Hand Smoke Exposure: No service: No Current occupational status: disabled Cognitive needs: No Hearing needs: No Vision needs: No Review of Systems Const Denies chills, Denies fatigue, Denies fever(s), Denies frequent falls, Denies weakness, Denies weight gain and Denies weight loss ENT Denies dizziness Card Denies chest pain, Denies leg edema, Denies lightheadedness, Denies palpitations, Denies dyspnea and Denies dyspnea on exertion Resp Denies cough, Denies dyspnea and Denies dyspnea on exertion GI Denies hematochezia Musc Denies abnormal gait, Denies muscle weakness, Denies numbness, Denies radiating pain into limb and Denies tingling Neuro Denies abnormal gait, Denies dizziness, Denies frequent falls, Denies numbness, Denies tingling and Denies weakness Endo Denies fatigue and Denies palpitations Physical Exam Vital Signs: Last Vital Signs Pulse 67 10/24/23 11:10 BP 140/72 H 10/24/23 11:10 Pulse Ox 100 10/24/23 11:10 BMI result Body Mass Index 20.0 GENERAL APPEARANCE: in no acute distress, well developed, well nourished. HEENT: unremarkable. HEAD: normocephalic, atraumatic. NECK/THYROID: no carotid bruit, no jugular venous distention. SKIN: no suspicious lesions, warm and dry. HEART: no murmurs, regular rate and rhythm, S1, S2 normal. LUNGS: clear to auscultation bilaterally. ABDOMEN: normal, bowel sounds present, soft, nontender, nondistended. EXTREMITIES: no clubbing, cyanosis, or edema. NEUROLOGIC: nonfocal, alert and oriented. Assessment & Plan Assessment & Plan (1) Stable angina: Code(s): I20.8 - Other forms of angina pectoris Category: Medical (2) S/P CABG x 3: Comment: Stable Code(s): Z95.1 - Presence of aortocoronary bypass graft Category: Medical (3) Claudication: Comment: With ultrasound duplex showing severe right SFA and profunda disease as well as occluded left SFA. Feeling better with Cilostazol. Code(s): I73.9 - Peripheral vascular disease, unspecified Category: Medical (4) HTN (hypertension): Code(s): I10 - Essential (primary) hypertension Category: Medical Qualifiers: Hypertension type: essential hypertension Qualified Code(s): I10 - Essential (primary) hypertension Plan Pleasant 73-year-old gentleman who is here for follow-up. He has been doing well and has no anginal symptoms. Blood pressure is elevated on follow-up. I have advised him to cut back on his salt intake. Adding chlorthalidone 25 mg once a day. He has peripheral vascular disease and was started on cilostazol and has been doing well since then. He is tolerating cilostazol 100 mg twice a day. I have advised him to exercise regularly doing summertime because this will help his claudication and he may be able to walk longer distance. Thank you for allowing me to participate in the care of your patient. Please feel free to contact me if you have any questions. Medications: New chlorthalidone 25 mg PO DAILY 60 tabs 3RF Coding Level of Care Code Est Pt Level 4 (65739) Diagnoses Stable angina I20.8 S/P CABG x 3 Z95.1 Claudication I73.9 Essential hypertension I10 Hypertension type: essential hypertension
== END 2023-10-24 11:34 | disposition home or self-care (01) ==
PROVIDERS: PCP Internal Medicine; Visit Provider Internal Medicine Cardiovascular Disease
DX: I20.89 Other forms of angina pectoris (principal); Z95.1 Presence of aortocoronary bypass graft; I73.9 Peripheral vascular disease, unspecified; I10 Essential (primary) hypertension
CPT/HCPCS: 99214

== ENCOUNTER → 2023-10-24 10:29 | Outpatient (BNVA) | payer OTHER, SELFPAY | PROVIDERS: PCP Internal Medicine; Visit Provider Internal Medicine Cardiovascular Disease | DX: I20.89 Other forms of angina pectoris (principal); I73.9 Peripheral vascular disease, unspecified; I10 Essential (primary) hypertension; Z95.1 Presence of aortocoronary bypass graft | CPT/HCPCS: 99212 ==

== ENCOUNTER 2023-11-30 06:47 | Outpatient (REF) | payer OTHER, SELFPAY ==
[2023-11-30 08:12] LABS: Alanine Aminotransferase 13 U/L (0-40); Alkaline Phosphatase 79 U/L (39-117); Anion Gap 11 (12-20); Aspartate Amino Transferase 19 U/L (5-37); Bilirubin Total 0.7 mg/dL (0.0-1.0); Blood Urea Nitrogen 20 mg/dL (9-16); Calcium 9.1 mg/dL (8.4-10.2); Carbon Dioxide 27 mmol/L (22-29); Chloride 109 mmol/L (96-108); Cholesterol 106 mg/dL (<200); Estimated Glomerular Filt Rate > 60; Glucose Fasting 109 mg/dL (60-99); HDL Cholesterol 40 mg/dL (>40); LDL Cholesterol Calculated 54 mg/dL (<100); Potassium 3.7 mmol/L (3.3-5.1); Sodium 143 mmol/L (135-145); Triglycerides 60 mg/dL (<150)
== END 2023-11-30 06:48 | disposition home or self-care (01) ==
LOC: HO.LAB 06:47
PROVIDERS: PCP Internal Medicine; Visit Provider Internal Medicine
DX: E78.5 Hyperlipidemia, unspecified (principal); I25.10 Atherosclerotic heart disease of native coronary artery without angina pectoris
CPT/HCPCS: 36415; 80053; 80061

== ENCOUNTER 2023-12-07 13:32 | Outpatient (AMB) | payer OTHER, SELFPAY ==
[2023-12-07 13:35] VITALS: BP 130/70; PULSE 70; O2SAT 98; BMI 19.5
--- NOTE | 2023-12-07 13:35 | MHC.PC.OV ---
Vital Signs 12/07/23 13:35 Height 5 ft 5 in Weight 117 lb BMI 19.5 BP 130/70 Blood Pressure Location Lt brachial Position Sitting Pulse 70 Pulse Source Pulse Oximeter Pulse Oximetry (%) 98 Oxygen Delivery Method Room Air Intake Visit Reasons: pe Intake Note: Patient is here today for a physical. Design Assistant Required: No Accompanied by: Significant Other Allergies No Known Allergies Allergy (Verified 12/07/23 13:50) Tobacco use date assessed: 07/12/23 Dental Screening Dental Screen Date: 07/12/23 HPI HPI Comments History of Present Illness Details This is a 73-year-old male with claudication that comes accompanied by significant other for his physical exam. Claudication has been stable and has improved and this is follow by vascular surgery. Has never had a colonoscopy but is willing to do Cologuard. Complains of difficulty swallowing and had a barium swallow showing achalasia and I will refer him again to Gastroenterology for evaluation. He was seen Gastroenterology for this matter. No chest pain or shortness on breath. Labs were discussed and he is aware has impaired glucose tolerance. [facility] Surgical History S/P CABG x 3 Family History Father No problems noted. Mother No problems noted. Social History Housing: House Alcohol intake: never Patient Tobacco Use Status: Former Tobacco user Years Smoked: 30+ e-Cigarette/Vaping Use: Never Used Second Hand Smoke Exposure: No service: No Current occupational status: disabled Cognitive needs: No Hearing needs: No Vision needs: No Questionnaire Thrive Questionnaire Date Thrive assessed: 07/12/23 DERRICK-7 AMB Questionnaire DERRICK-7 Date DERRICK - 7 assessed: 07/12/23 Source: Developed by Drs. Kendrick Jerez, Bobbi Ghotra, Joshua Franco and colleagues, with an educational dayana from [employer]. Review of Systems Const All systems reviewed & are unremarkable except as noted in HPI and below ENT Reports dysphagia Card Denies chest pain at rest, Denies chest pain with activity, Denies edema, Denies irregular heart rhythm, Denies claudication, Denies dyspnea, Denies dyspnea on exertion, Denies orthopnea, Denies paroxysmal nocturnal dyspnea and Denies slow heart rate Resp Denies cough, Denies dyspnea and Denies dyspnea on exertion GI Reports dysphagia Physical exam (Primary Care) Vital Signs: Last Vital Signs Pulse 70 12/07/23 13:35 BP 130/70 12/07/23 13:35 Pulse Ox 98 12/07/23 13:35 Oxygen Delivery Method Room Air 12/07/23 13:35 BMI result Body Mass Index 19.5 Tobacco/Smoking Status: Tobacco use Status Tobacco use date assessed 07/12/23 12/07/23 13:36 Patient Tobacco Use Status Former Tobacco user 12/07/23 13:36 e-Cigarette/Vaping Use Never Used 12/07/23 13:36 Thrive Assessment: Date of Thrive Assessment Date Thrive assessed 07/12/23 12/07/23 13:36 [facility] Head: Yes normal to inspection, Yes normocephalic and Yes atraumatic Ears: external ears normal Eyes General: appearance normal, both eyes and all related structures Eyelids: Yes eyelids normal Conjunctivae: conjunctivae normal Neck Neck: Yes normal visual inspection and Yes supple Resp Effort & Inspection: normal respiratory effort Auscultation: clear to auscultation bilaterally Cardio Jugular venous distension: no JVD Rate: regular rate Rhythm: regular rhythm Heart sounds: S1 normal heart sound present and S2 normal heart sound present GI Inspection: Yes normal to inspection Palpation (GI): Soft to palpation and nontender Auscultation: normal bowel sounds Skin General skin exam: no rashes or lesions noted Neuro General: no focal motor deficits Extrem General: Yes full ROM Psych Appearance: grossly normal Assessment and Plan Assessment & Plan (1) Physical exam: Code(s): Z00.00 - Encounter for general adult medical examination without abnormal findings Plan: Repeat in a year. (2) Claudication: Comment: With ultrasound duplex showing severe right SFA and profunda disease as well as occluded left SFA. Feeling better with Cilostazol. Code(s): I73.9 - Peripheral vascular disease, unspecified Plan: Continue cilostazol. 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 Orders: Orders Lipid Panel 4 Months E78.5 - Hyperlipidemia, unspecified Comprehensive Pomaria. Panel Fast 4 Months Z00.00 - Encounter for general adult medical examination without abnormal findings Referrals Gastroenterology Referral K22.0 - Achalasia of cardia Medications: New clotrimazole 1% (Antifungal (clotrimazole)) 1 appl topical BID 30 grams 1RF 2 weeks Coding Level of Care Code Est Pt Level 3 (38489) Est Pt Prev Care >65y(37441) Diagnoses Physical exam Z00.00 Claudication I73.9 Achalasia K22.0 Time Spent (min) 33
== END 2023-12-07 14:41 | disposition home or self-care (01) ==
PROVIDERS: PCP Internal Medicine; Visit Provider Internal Medicine
DX: Z00.00 Encounter for general adult medical examination without abnormal findings (principal); I73.9 Peripheral vascular disease, unspecified; K22.0 Achalasia of cardia
CPT/HCPCS: 99397

== ENCOUNTER → 2023-12-07 23:59 | Outpatient (BNV) | payer OTHER, SELFPAY | PROVIDERS: PCP Internal Medicine; Visit Provider Internal Medicine | DX: I70.212 Atherosclerosis of native arteries of extremities with intermittent claudication, left leg (principal); E78.5 Hyperlipidemia, unspecified; Z91.81 History of falling | CPT/HCPCS: G0179 ==

== ENCOUNTER 2024-01-16 10:56 | Outpatient (AMB) | payer OTHER, SELFPAY ==
[2024-01-16 11:29] VITALS: BP 130/60; PULSE 61; BMI 19.3
--- NOTE | 2024-01-16 11:29 | MHC.OFFVIS ---
Vital Signs 01/16/24 11:29 Height 5 ft 5 in Weight 115 lb 15.41 oz BMI 19.3 BP 130/60 Blood Pressure Location Lt brachial Position Sitting Pulse 61 Pulse Source Monitor Intake Visit Reasons: 3m follow up Intake Note: 3 mth f/up Passenger Elevator Operator Required: Yes Passenger Elevator Operator Name: [id number]/domi/danish Accompanied by: Spouse Allergies No Known Allergies Allergy (Verified 12/07/23 13:50) Medication List - Last Reconciled 01/16/24 by Jus Callejas MD amlodipine 10 mg PO DAILY aspirin (Adult Aspirin Regimen) 81 mg PO DAILY 90 days atorvastatin 20 mg PO DAILY 90 days chlorthalidone 25 mg PO DAILY cilostazol 100 mg PO BID 90 days clotrimazole 1% (Antifungal (clotrimazole)) 1 appl topical BID 2 weeks docusate sodium 100 mg PO BID 90 days famotidine 20 mg PO BID 90 days lisinopril 20 mg PO DAILY 90 days meloxicam 15 mg PO DAILY 90 days metoprolol tartrate 50 mg PO BID 90 days multivitamin 1 tab PO DAILY 90 days pantoprazole 40 mg PO DAILY simethicone (Gas Relief (simethicone)) 250 mg (2 x 125 mg) PO BID PRN 30 days HPI Comments Details: Very pleasant 73-year-old gentleman with background history of coronary arteries bypass surgery performed in 2012. It appears he has 3 bypasses with FAULKNER to LAD, vein graft to diagonal and vein graft to OM. Based on records at [facility] his ejection fraction was initially low but as of an echocardiogram in 2018 his LVEF is 50-55% with inferior scar. He said before CABG he had burning chest discomfort with exercise. This has not happened since the bypass surgery. In 2013 he had peripheral angiography by Dr. Nixon and underwent right common iliac as well as left external iliac artery stenting. He had [facility] [employer] of the left SFA at that time. He also had severe right SFA stenosis at that time. He is complaining that he has leg pain when he walks 1 block. He is pointing to thighs as well as both calves. No open wounds or ulcers on the feet. No nighttime symptoms. He has been compliant with medications. He does not smoke but is a former smoker. At this stage he was referred for ankle-brachial index and ultrasound assessment. ABIs were abnormal and he was found to have a high-grade stenosis in the right SFA and occluded left SFA. 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 He returns for f/u. 07/21/22: He has been doing well and does not have significant claudication. He is complaining of anorexia and weight loss. He has never had a colonoscopy. He has some GI upset which can be due to cilostazol but he has been experiencing anorexia and weight loss. We referred him to GI for further work up. It appears he did not show up for the appointment. 12/15/22: He is here for follow-up. He is saying that things are stable he still has mild claudication but does not have any progressive symptoms. He is tolerating the us last dose all at 50 mg twice a day. He continues to have anorexia and does not feel like eating anything. He never had any colonoscopy. We discussed about previous referral to GI and he is saying that he has not received any calls. We will arrange an appointment for him. No chest discomfort shortness of breath. 04/25/23: He returns for follow-up. He is denying chest discomfort. He is saying that his claudication has improved since he has been taking cilostazol. Taking medications regularly. He has seen GI and will be considering EGD. He was also advised to do colonoscopy but he has not made up his mind. 10/24/2023: He returns for follow-up. Denying any chest discomfort shortness of breath. He continues to get some claudication but saying that he can walk up to 1-1/2 block and then gets claudication symptoms. He is tolerating cilostazol. Blood pressure is elevated and manual recheck by myself was 150/70. He has been taking medications regularly otherwise. 01/16/2024: He is here for follow-up. He is denying any chest pain or shortness of breath. Blood pressure is well controlled. He is saying he is able to walk a block. On cilostazol. He underwent barium swallow which is showing concern for achalasia. He has been getting some issues with swallowing and episodes where he choked. I have discussed with GI and he will be given an urgent appointment. [facility] Surgical History S/P CABG x 3 Family History Father No problems noted. Mother No problems noted. Social History Housing: House Alcohol intake: never Patient Tobacco Use Status: Former Tobacco user Years Smoked: 30+ e-Cigarette/Vaping Use: Never Used Second Hand Smoke Exposure: No service: No Current occupational status: disabled Cognitive needs: No Hearing needs: No Vision needs: No Review of Systems Const Denies chills, Denies fatigue, Denies fever(s), Denies frequent falls, Denies weakness, Denies weight gain and Denies weight loss ENT Denies dizziness Card Denies chest pain, Denies leg edema, Denies lightheadedness, Denies palpitations, Denies dyspnea and Denies dyspnea on exertion Resp Denies cough, Denies dyspnea and Denies dyspnea on exertion GI Denies hematochezia Musc Denies abnormal gait, Denies muscle weakness, Denies numbness, Denies radiating pain into limb and Denies tingling Neuro Denies abnormal gait, Denies dizziness, Denies frequent falls, Denies numbness, Denies tingling and Denies weakness Endo Denies fatigue and Denies palpitations Physical Exam Vital Signs: Last Vital Signs Pulse 61 01/16/24 11:29 BP 130/60 01/16/24 11:29 BMI result Body Mass Index 19.3 GENERAL APPEARANCE: in no acute distress, well developed, well nourished. HEENT: unremarkable. HEAD: normocephalic, atraumatic. NECK/THYROID: no carotid bruit, no jugular venous distention. SKIN: no suspicious lesions, warm and dry. HEART: no murmurs, regular rate and rhythm, S1, S2 normal. LUNGS: clear to auscultation bilaterally. ABDOMEN: normal, bowel sounds present, soft, nontender, nondistended. EXTREMITIES: no clubbing, cyanosis, or edema. NEUROLOGIC: nonfocal, alert and oriented. Office Procedures EKG Details: Sinus rhythm 61 beats per minute, first-degree AV block NC interval 278 milliseconds, left axis deviation, inferior infarct, anterior infarct, QTC 438 milliseconds. [id number], Complete Assessment & Plan Assessment & Plan (1) Stable angina: Code(s): I20.8 - Other forms of angina pectoris Category: Medical (2) S/P CABG x 3: Comment: Stable Code(s): Z95.1 - Presence of aortocoronary bypass graft Category: Surgical (3) Claudication: Comment: With ultrasound duplex showing severe right SFA and profunda disease as well as occluded left SFA. Feeling better with Cilostazol. Code(s): I73.9 - Peripheral vascular disease, unspecified Category: Medical (4) HTN (hypertension): Code(s): I10 - Essential (primary) hypertension Category: Medical Qualifiers: Hypertension type: essential hypertension Qualified Code(s): I10 - Essential (primary) hypertension Plan Pleasant 73-year-old gentleman who is here for follow-up. He has been doing well and has no anginal symptoms. Blood pressure is better controlled compared to last visit. He has peripheral vascular disease and was started on cilostazol and has been doing well since then. He is tolerating cilostazol 100 mg twice a day. He has achalasia and will be seeing gastroenterology. He has EKGs showing inferior Q-waves as well as anterior Q-waves. We will do echocardiography to assess LV function/wall motion abnormality. I have advised him to exercise regularly doing summertime because this will help his claudication and he may be able to walk longer distance. Thank you for allowing me to participate in the care of your patient. Please feel free to contact me if you have any questions. Orders: Orders CA echo transthorac w con Today I20.8 - Other forms of angina pectoris Coding Level of Care Code Est Pt Level 4 (25950) Diagnoses Stable angina I20.8 S/P CABG x 3 Z95.1 Claudication I73.9 Essential hypertension I10 Hypertension type: essential hypertension CPT Codes EKG - CPT: 01600-[id number], Complete ([id number])
== END 2024-01-16 12:36 | disposition home or self-care (01) ==
PROVIDERS: PCP Internal Medicine; Visit Provider Internal Medicine Cardiovascular Disease
DX: I20.89 Other forms of angina pectoris (principal); Z95.1 Presence of aortocoronary bypass graft; I73.9 Peripheral vascular disease, unspecified; I10 Essential (primary) hypertension
CPT/HCPCS: 93010; 99214

== ENCOUNTER → 2024-01-16 10:56 | Outpatient (BNVA) | payer OTHER, SELFPAY | PROVIDERS: PCP Internal Medicine; Visit Provider Internal Medicine Cardiovascular Disease | DX: I10 Essential (primary) hypertension (principal); I73.9 Peripheral vascular disease, unspecified; I20.89 Other forms of angina pectoris; Z95.1 Presence of aortocoronary bypass graft | CPT/HCPCS: 93005; 99212 ==

== ENCOUNTER 2024-01-30 09:44 | Outpatient (AMB) | payer OTHER, SELFPAY ==
--- NOTE | 2024-01-30 10:20 | MHC.OFFVIS ---
Vital Signs 01/30/24 10:24 Height 5 ft 5 in Weight 116 lb 13.52 oz BMI 19.4 BP 152/72 H Blood Pressure Location Lt brachial Position Sitting Pulse 65 Intake Visit Reasons: BS results and Dysphagia Intake Note: Nate presents in the office as a f/u for BS results and Dysphagia. CC: He states that he is having issues with his swallowing. He states that he does not have diarrhea but he does have gastritis. Home Service Demonstrator Required: Yes Home Service Demonstrator Name: [id number] Beth Allergies No Known Allergies Allergy (Verified 01/30/24 10:25) HPI Comments Details: 72 y.o M with PMH of CAD s/p CABG 2013, PVD, who is here for follow up of loss of appetite. 12/22/22: Patient was seen with the help of a alteration tailor apprentice. Patient reports that every summer, he notices a decrease in his appetite in starts to prefer smaller meals, and then this returns to baseline when it is fall time. With this he also loses a few lb, and then regained stem during the winter time- which is also corroborated in the chart. No abdominal pain, nausea, vomiting, early satiety. He is unsure of the degree of weight loss so far, as does not weigh himself at home. Otherwise, has not noticed his clothing getting loose on him. He also does not report any obvious pain or difficulty swallowing however says that since 2012 (his CABG) has had intermittent sensation of food getting stuck. Pt has never had a colonoscopy and is adamant to not have one in future either. Weight curve 2020 to 2022. 02/02/23: Pt is here with his . Seen with the help of alteration tailor apprentice. CT scan was denied by insurance. Appeal pending. Barium swallow sunil for next month. Remaining labs normal. FIT ordered by PCP is ABNORMAL - results scanned 02/01. Pt reports appetite back to baseline. Weight is unchanged from last visit. 01/30/24: Seen with the help of alteration tailor apprentice. Was lost to follow up. Re-referred for abnormal barium swallow. Pt was last seen in 2022 and that time had declined the colonoscopy for positive FIT. Barium swallow 07/2023: 1. Cricopharyngeal achalasia, somewhat profound, with a small Zenker's diverticulum just above the cricopharyngeus muscle. 2. Consistent pooling of contrast within the piriform sinuses and vallecula, with mild ballooning of the hypopharynx on swallow. 3. Disordered peristalsis of the esophagus, which is mildly patulous. 4. Narrowing of the GE junction with a smooth appearance is likely secondary to moderate achalasia. 5. Thickened rugal folds throughout the stomach, with at least one or 2 hyperplastic polyps present, consistent with gastritis. 6. Small type I hiatus hernia. 7. Mild gastroesophageal reflux to the level of the amira. Pt reports significant post prandial abd discomfort and nausea. Also reports choking on food neeta hard texture. Pt was given famotidine 20 BID by his PCP However does not think its been helpful. PFSH Surgical History S/P CABG x 3 Family History Father No problems noted. Mother No problems noted. Social History Housing: House Alcohol intake: never Patient Tobacco Use Status: Former Tobacco user Years Smoked: 30+ e-Cigarette/Vaping Use: Never Used Second Hand Smoke Exposure: No service: No Current occupational status: disabled Cognitive needs: No Hearing needs: No Vision needs: No Review of Systems Const All systems reviewed & are unremarkable except as noted in HPI and below Physical Exam Vital Signs: Last Vital Signs Pulse 65 01/30/24 10:24 BP 152/72 H 01/30/24 10:24 BMI result Body Mass Index 19.4 No apparent distress Nonicteric Abdomen soft, nondistended Alert and oriented x3, normal gait Assessment & Plan Assessment & Plan (1) Globus sensation: Code(s): R09.89 - Other specified symptoms and signs involving the circulatory and respiratory systems Category: Medical (2) Positive fecal immunochemical test: Code(s): R19.5 - Other fecal abnormalities Category: Medical (3) Cricopharyngeal achalasia: Code(s): K22.0 - Achalasia of cardia Category: Medical (4) Zenkers diverticulum: Code(s): K22.5 - Diverticulum of esophagus, acquired Category: Medical Plan Results of the barium esophagogram reviewed with the patient. He is agreeable to proceeding with upper endoscopy with possible dilation. He is aware that this is to be done after he has had an echocardiogram and cleared by Cardiology. Based on findings on EGD may need referral for diverticulectomy. We again reviewed STRONG indication for follow-up colonoscopy after a positive fit test. Patient continues to decline a colonoscopy. Plan: - Stop famotidine - Start omeprazole 20 BID - Avoid NSAIDs including meloxicam - EGD to be booked after cardiology clearance (pt awaiting echo) - Clinton declined by pt as above Follow up after EGD Medications: New omeprazole 20 mg PO BID 30 days 60 caps 2RF Discontinued famotidine Discontinued Reason: Doctor's Order 20 mg PO BID 90 days 180 tabs 1RF K21.9 - Gastro-esophageal reflux disease without esophagitis Coding Level of Care Code Est Pt Level 4 (91066) Diagnoses Globus sensation R09.89 Positive fecal immunochemical test R19.5 Cricopharyngeal achalasia K22.0 Zenkers diverticulum K22.5
[2024-01-30 10:24] VITALS: BP 152/72; PULSE 65; BMI 19.4
== END 2024-01-30 16:52 | disposition home or self-care (01) ==
PROVIDERS: PCP Internal Medicine; Visit Provider Internal Medicine
DX: R09.89 Other specified symptoms and signs involving the circulatory and respiratory systems (principal); R19.5 Other fecal abnormalities; K22.0 Achalasia of cardia; K22.5 Diverticulum of esophagus, acquired
CPT/HCPCS: 99214

== ENCOUNTER → 2024-01-30 09:44 | Outpatient (BNVA) | payer OTHER, SELFPAY | PROVIDERS: PCP Internal Medicine; Visit Provider Internal Medicine | DX: R09.89 Other specified symptoms and signs involving the circulatory and respiratory systems (principal); K22.0 Achalasia of cardia; K22.5 Diverticulum of esophagus, acquired; K21.9 Gastro-esophageal reflux disease without esophagitis; R19.5 Other fecal abnormalities; Z95.1 Presence of aortocoronary bypass graft | CPT/HCPCS: 99212 ==

== ENCOUNTER → 2024-02-02 10:37 | Outpatient (REF) | payer OTHER, SELFPAY ==
--- NOTE | 2024-02-02 11:17 | CA_ITS ---
Transthoracic Echocardiogram Patient (Last, First, Middle): Nate Lepe, Gender: Male Date of : 1950 Age: 73 Procedure Date: 02/02/2024 Procedure Type: Transthoracic Echocardiogram Location: OP Height: 165.1 cm Weight: 53.52 kg BSA: 1.58 m2 Heart Rate: bpm BP: 142 / 70 mmHg Jewelry Drill Operator: TRUDI Referring MD: Jus aCllejas MD Symptoms: I20.8 - Other forms of angina pectoris Study Quality: Fair Conclusions: - Normal left ventricular cavity size. There is mildly increased left ventricular wall thickness. The left ventricular systolic function is low normal. The visually estimated ejection fraction is between 50-55%. - The basal inferior and basal inferoseptal segments are akinetic. - Normal right ventricular cavity size. There is mildly decreased right ventricular systolic function. Findings Left Ventricle Normal left ventricular cavity size. There is mildly increased left ventricular wall thickness. The left ventricular systolic function is low normal. The visually estimated ejection fraction is between 50-55%. There is evidence of regional wall motion abnormalities. Abnormal diastolic function is noted. Spectral Doppler is indicative of a pseudonormal filling pattern. E/E prime ratio is between 8 and 15 consistent with indeterminate filling pressures. Wall Motion Rest Echo Findings The basal inferior and basal inferoseptal segments are akinetic. Right Ventricle Normal right ventricular cavity size. There is mildly decreased right ventricular systolic function. Atria The left atrium is mildly dilated. The right atrium is likely dilated. Aortic Valve There is a normal trileaflet aortic valve. There is no aortic valve stenosis. There is no aortic valve regurgitation. Mitral Valve The mitral valve appears normal. There is mild mitral valve regurgitation. There is no mitral valve stenosis. Pulmonic Valve The pulmonic valve is normal. There is trace pulmonic valve regurgitation. Tricuspid Valve Normal tricuspid valve structure. There is mild tricuspid valve regurgitation. Normal right atrial pressure. There is no evidence of pulmonary hypertension. Great Vessels All visible segments of the aorta are normal in size. The visualized portions of the pulmonary artery and branches are normal. Venous The inferior vena cava is normal in size and collapses greater than 50% with inspiration. Pericardium/Pleural There is no evidence of pericardial effusion. Prior Study Comparison No significant change compared to prior study dated: 02/20/2021. Measurements 2D Linear Measurements IVSd: 1.03 0.6-0.9/0.6-1.0 cm LVIDd: 4.17 3.9-5.3/4.2-5.9 cm LVIDd Index: 2.64 2.4-3.2/2.2-3.1 cm/m2 LVIDs: 2.99 2.0-3.6 cm LVPWd: 0.92 0.7-1.1 cm LA Diam: 3.90 2.7-3.8/3.0-4.0 cm LAIDs Index: 2.47 1.5-2.3 cm/m2 LV Mass: 163.45 67-162/88-224 g LV Mass Index: 103.45 43-95/49-115 g/m2 LVOT Diam: 2.00 3.0+(-)1.3 cm 2D Systolic Function EF 4C: 50.10 >55% EF 2C: 56.20 >55% EF BiP: 54.60 >55% Mitral Valve MV Pk E: 0.97 MV PK A: 0.70 MV Decel Time: 171.00 E/A: 1.40 E'Lateral: 9.68 E'Medial: 5.44 E/E' Med: 17.90 E/E' Lat: 10.10 PHT: 50.00 MVA PHT: 4.40 Decel [place]: 5.68 Aortic Valve AoV Pk Rodrigo: 1.08 AoV Mn Rodrigo: 0.73 AoV VTI: 0.27 AoV Pk Grad: 5.00 Aov Mn Grad: 2.00 JUAQUIN Cont.VTI: 1.92 LVOT LVOT Pk Rodrigo: 0.68 LVOT Mn Rodrigo: 0.48 LVOT VTI: 0.17 LVOT Pk Grad: 2.00 LVOT Mn Grad: 1.00 LVOT Diam: 2.00 LVOT Area: 3.14 Diastolic Function MV Pk E: 0.97 MV Pk A: 0.70 E/A: 1.40 E'Medial: 5.44 E/E' Med: 17.90 E' Laterial: 9.68 E/E' Lat: 10.10 Right Ventricle TAPSE (mm): 17.70 TVS' Rodrigo: 8.59 Tricuspid Valve TR Pk Rodrigo: 2.56 TR Pk Grad: 26.00 RA Press: 3.00 RVSP: 29.00 Great Vessels Aorta Sinus of Valsalva: 3.31 2.0-3.[address] [place]: 2.71 1.7-3.4 cm Ao Asc: 3.00 2.1-3.4 cm Ao Arch: 2.70 Updated in Other Vendor System with Status of Final Jus Callejas MD electronically signed on 02/02/2024 9:44:01 PM with status of Final
== END ==
LOC: HO.CARD 10:37
PROVIDERS: PCP Internal Medicine; Visit Provider Internal Medicine Cardiovascular Disease
DX: I20.81 Angina pectoris with coronary microvascular dysfunction (principal)
CPT/HCPCS: 93306

== ENCOUNTER → 2024-02-02 11:17 | Outpatient (BNV) | payer OTHER, SELFPAY | PROVIDERS: PCP Internal Medicine; Visit Provider Internal Medicine Cardiovascular Disease | DX: I34.0 Nonrheumatic mitral (valve) insufficiency (principal); I37.1 Nonrheumatic pulmonary valve insufficiency; I36.1 Nonrheumatic tricuspid (valve) insufficiency | CPT/HCPCS: 93306 ==

== ENCOUNTER 2024-04-19 15:15 | Outpatient (AMB) | payer OTHER, SELFPAY ==
[2024-04-19 15:25] VITALS: BP 136/74; BMI 19.5
--- NOTE | 2024-04-19 15:25 | MHC.PC.OV ---
Vital Signs 04/19/24 15:25 Height 5 ft 5 in Weight 117 lb BMI 19.5 BP 136/74 Blood Pressure Location Lt brachial Position Sitting Intake Visit Reasons: 3mof\u Intake Note: Patient here for a 3 month follow up Nightman Required: No Accompanied by: Spouse Allergies No Known Allergies Allergy (Verified 04/19/24 15:50) Medication List - Last Reconciled 04/19/24 by Sheridan Yates MD amlodipine 10 mg PO DAILY aspirin (Adult Aspirin Regimen) 81 mg PO DAILY 90 days atorvastatin 20 mg PO DAILY 90 days chlorthalidone 25 mg PO DAILY cilostazol 50 mg PO BID 90 days clotrimazole 1% (Antifungal (clotrimazole)) 1 appl topical BID 2 weeks docusate sodium 100 mg PO BID 90 days lisinopril 20 mg PO DAILY 90 days meloxicam 15 mg PO DAILY 90 days metoprolol tartrate 50 mg PO BID 90 days multivitamin 1 tab PO DAILY 90 days omeprazole 20 mg PO BID 30 days simethicone (Gas Relief (simethicone)) 250 mg (2 x 125 mg) PO BID PRN 30 days Tobacco use date assessed: 07/12/23 Fall risk assessment: No Falls in past year Last assessed Fall Risk: 04/19/24 Dental Screening Dental Screen Date: 04/19/24 Did you have a dental visit in the last 12 months?: No Did you have a dental problem in the last 6 months where you did not have access to dental care?: No Was dental information given to patient?: Patient has dentist HPI HPI Comments History of Present Illness Details This is a 73-year-old male with hypertension, pure hypercholesterolemia, peripheral vascular disease, chronic constipation and cricopharyngeal achalasia that comes today accompanied by significant other for follow-up on his conditions. Blood pressure stable. Last cholesterol was well control and this will be repeated for the next office visit. On cilostazol for peripheral vascular disease and this is follow by vascular surgery which has not worsened. Constipation has improved with medications as needed. Has achalasia by upper GI series and was evaluated by Gastroenterology which wanted to repaired by endoscopy which is still pending. I recommend patient to contact Gastroenterology. No chest pain or shortness on breath. [facility] Surgical History S/P CABG x 3 Family History Father No problems noted. Mother No problems noted. Social History Housing: House Alcohol intake: never Patient Tobacco Use Status: Former Tobacco user Years Smoked: 30+ e-Cigarette/Vaping Use: Never Used Second Hand Smoke Exposure: No service: No Current occupational status: disabled Cognitive needs: No Hearing needs: No Vision needs: No Questionnaire Thrive Questionnaire Date Thrive assessed: 07/12/23 DERRICK-7 AMB Questionnaire DERRICK-7 Date DERRICK - 7 assessed: 07/12/23 Source: Developed by Drs. Kendrick Jerez, Bobbi Ghotra, Joshua Franco and colleagues, with an educational dayana from [employer]. Review of Systems Const All systems reviewed & are unremarkable except as noted in HPI and below Card Denies chest pain at rest, Denies chest pain with activity, Denies edema, Denies irregular heart rhythm, Denies claudication, Denies dyspnea, Denies dyspnea on exertion, Denies orthopnea, Denies paroxysmal nocturnal dyspnea and Denies slow heart rate Resp Denies cough, Denies dyspnea and Denies dyspnea on exertion Physical exam (Primary Care) Vital Signs: Last Vital Signs BP 136/74 04/19/24 15:25 BMI result Body Mass Index 19.5 Tobacco/Smoking Status: Tobacco use Status Tobacco use date assessed 07/12/23 04/19/24 15:25 Patient Tobacco Use Status Former Tobacco user 04/19/24 15:25 e-Cigarette/Vaping Use Never Used 04/19/24 15:25 Thrive Assessment: Date of Thrive Assessment Date Thrive assessed 07/12/23 04/19/24 15:25 Resp Effort & Inspection: normal respiratory effort Auscultation: clear to auscultation bilaterally Cardio Jugular venous distension: no JVD Rate: regular rate Rhythm: regular rhythm Heart sounds: S1 normal heart sound present and S2 normal heart sound present Extrem General: Yes full ROM Office Procedures Flu Questionnaire Does the patient have a severe egg allergy?: No Immunizations Fluarix Triv [id number] (PF) 45 mcg (15 mcg x 3)/0.5 mL IM syringe Performing Provider: Sheridan Yates MD Performing Location: [facility] [place] [facility] Documented (not given) by: OSEI Stout on 04/19/24 15:30 Reason Not Given: Patient Refused Coding Level of Care Code Est Pt Level 4 (04130) Complex EM visit Add On G2211 Diagnoses Cricopharyngeal achalasia K22.0 PVD (peripheral vascular disease) I73.9 Essential hypertension I10 Hypertension type: essential hypertension Mixed hyperlipidemia E78.2 Hyperlipidemia type: mixed hyperlipidemia Chronic constipation K59.09 Time Spent (min) 24 Assessment & Plan Assessment & Plan (1) Cricopharyngeal achalasia: Code(s): K22.0 - Achalasia of cardia Category: Medical Plan: Follow-up with Gastroenterology. (2) PVD (peripheral vascular disease): Comment: As below Code(s): I73.9 - Peripheral vascular disease, unspecified Category: Medical Plan: Continue cilostazol. (3) HTN (hypertension): Code(s): I10 - Essential (primary) hypertension Category: Medical Qualifiers: Hypertension type: essential hypertension Qualified Code(s): I10 - Essential (primary) hypertension Plan: Continue amlodipine and lisinopril. Blood pressure goal is equal or less than 130/80. (4) HLD (hyperlipidemia): Code(s): E78.5 - Hyperlipidemia, unspecified Category: Medical Qualifiers: Hyperlipidemia type: mixed hyperlipidemia Qualified Code(s): E78.2 - Mixed hyperlipidemia Plan: Continue statins. (5) Chronic constipation: Code(s): K59.09 - Other constipation Category: Medical Plan: Continue docusate as needed for constipation. Follow a high-fiber diet. Orders: Orders Influenza [id number] Immunization 04/19/24 Z23 - Encounter for immunization Lipid Panel 4 Months E78.5 - Hyperlipidemia, unspecified Comprehensive Claude. Panel Fast 4 Months I10 - Essential (primary) hypertension Medications: Refilled cilostazol 50 mg PO BID 180 tabs 1RF 90 days
== END 2024-04-19 16:03 | disposition home or self-care (01) ==
LOC: HO.HMCH 15:16
PROVIDERS: PCP Internal Medicine; Visit Provider Internal Medicine
DX: K22.0 Achalasia of cardia (principal); I73.9 Peripheral vascular disease, unspecified; I10 Essential (primary) hypertension; E78.2 Mixed hyperlipidemia; K59.09 Other constipation

== ENCOUNTER → 2024-04-19 15:15 | Outpatient (BNVA) | payer OTHER, SELFPAY | PROVIDERS: PCP Internal Medicine; Visit Provider Internal Medicine | DX: K22.0 Achalasia of cardia (principal); I73.9 Peripheral vascular disease, unspecified; I10 Essential (primary) hypertension; E78.2 Mixed hyperlipidemia; K59.09 Other constipation | CPT/HCPCS: 90471; 99212 ==

== ENCOUNTER 2024-05-23 10:07 | Outpatient (AMB) | payer OTHER, SELFPAY ==
[2024-05-23 10:47] VITALS: BP 120/60; PULSE 69
--- NOTE | 2024-05-23 10:47 | MHC.OFFVIS ---
Vital Signs 05/23/24 10:47 Height 5 ft 5 in Weight 120 lb 5.958 oz BMI 20.0 BP 120/60 Blood Pressure Location Lt brachial Position Sitting Pulse 69 Pulse Source Pulse Oximeter Intake Visit Reasons: 4 mth s/p echo Intake Note: 4 mth f/up/echo Live In Housekeeper Nanny Required: Yes Live In Housekeeper Nanny Language: Regional Clinical Research Associate Name: [email or web address] [id number] Accompanied by: Spouse Allergies No Known Allergies Allergy (Verified 04/19/24 15:50) Medication List - Last Reconciled 05/23/24 by Jus Callejas MD amlodipine 10 mg PO DAILY aspirin (Adult Aspirin Regimen) 81 mg PO DAILY 90 days atorvastatin 20 mg PO DAILY 90 days chlorthalidone 25 mg PO DAILY cilostazol 50 mg PO BID 90 days clotrimazole 1% (Antifungal (clotrimazole)) 1 appl topical BID 2 weeks docusate sodium 100 mg PO BID 90 days lisinopril 20 mg PO DAILY 90 days meloxicam 15 mg PO DAILY 90 days metoprolol tartrate 50 mg PO BID 90 days multivitamin 1 tab PO DAILY 90 days omeprazole 20 mg PO BID 90 days simethicone (Gas Relief (simethicone)) 250 mg (2 x 125 mg) PO BID PRN 30 days HPI Comments Details: Very pleasant 73-year-old gentleman with background history of coronary arteries bypass surgery performed in 2012. It appears he has 3 bypasses with FAULKNER to LAD, vein graft to diagonal and vein graft to OM. Based on records at [facility] his ejection fraction was initially low but as of an echocardiogram in 2018 his LVEF is 50-55% with inferior scar. He said before CABG he had burning chest discomfort with exercise. This has not happened since the bypass surgery. In 2013 he had peripheral angiography by Dr. Nixon and underwent right common iliac as well as left external iliac artery stenting. He had RETAIL CONSULTANT of the left SFA at that time. He also had severe right SFA stenosis at that time. He is complaining that he has leg pain when he walks 1 block. He is pointing to thighs as well as both calves. No open wounds or ulcers on the feet. No nighttime symptoms. He has been compliant with medications. He does not smoke but is a former smoker. At this stage he was referred for ankle-brachial index and ultrasound assessment. ABIs were abnormal and he was found to have a high-grade stenosis in the right SFA and occluded left SFA. 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 He returns for f/u. 07/21/22: He has been doing well and does not have significant claudication. He is complaining of anorexia and weight loss. He has never had a colonoscopy. He has some GI upset which can be due to cilostazol but he has been experiencing anorexia and weight loss. We referred him to GI for further work up. It appears he did not show up for the appointment. 12/15/22: He is here for follow-up. He is saying that things are stable he still has mild claudication but does not have any progressive symptoms. He is tolerating the us last dose all at 50 mg twice a day. He continues to have anorexia and does not feel like eating anything. He never had any colonoscopy. We discussed about previous referral to GI and he is saying that he has not received any calls. We will arrange an appointment for him. No chest discomfort shortness of breath. 04/25/23: He returns for follow-up. He is denying chest discomfort. He is saying that his claudication has improved since he has been taking cilostazol. Taking medications regularly. He has seen GI and will be considering EGD. He was also advised to do colonoscopy but he has not made up his mind. 10/24/2023: He returns for follow-up. Denying any chest discomfort shortness of breath. He continues to get some claudication but saying that he can walk up to 1-1/2 block and then gets claudication symptoms. He is tolerating cilostazol. Blood pressure is elevated and manual recheck by myself was 150/70. He has been taking medications regularly otherwise. 01/16/2024: He is here for follow-up. He is denying any chest pain or shortness of breath. Blood pressure is well controlled. He is saying he is able to walk a block. On cilostazol. He underwent barium swallow which is showing concern for achalasia. He has been getting some issues with swallowing and episodes where he choked. I have discussed with GI and he will be given an urgent appointment. 05/23/2024: He returns for follow-up. He has been using cilostazol and is able to walk 2-3 blocks at this stage. Denying any chest discomfort shortness of breath. Overall doing quite well. Blood pressure is well controlled. [facility] Surgical History S/P CABG x 3 Family History Father No problems noted. Mother No problems noted. Social History Housing: House Alcohol intake: never Patient Tobacco Use Status: Former Tobacco user Years Smoked: 30+ e-Cigarette/Vaping Use: Never Used Second Hand Smoke Exposure: No service: No Current occupational status: disabled Cognitive needs: No Hearing needs: No Vision needs: No Review of Systems Const Denies chills, Denies fatigue, Denies fever(s), Denies frequent falls, Denies weakness, Denies weight gain and Denies weight loss ENT Denies dizziness Card Denies chest pain, Denies leg edema, Denies lightheadedness, Denies palpitations, Denies dyspnea and Denies dyspnea on exertion Resp Denies cough, Denies dyspnea and Denies dyspnea on exertion GI Denies hematochezia Musc Denies abnormal gait, Denies muscle weakness, Denies numbness, Denies radiating pain into limb and Denies tingling Neuro Denies abnormal gait, Denies dizziness, Denies frequent falls, Denies numbness, Denies tingling and Denies weakness Endo Denies fatigue and Denies palpitations Physical Exam Vital Signs: Last Vital Signs Pulse 69 05/23/24 10:47 BP 120/60 05/23/24 10:47 BMI result Body Mass Index 20.0 GENERAL APPEARANCE: in no acute distress, well developed, well nourished. HEENT: unremarkable. HEAD: normocephalic, atraumatic. NECK/THYROID: no carotid bruit, no jugular venous distention. SKIN: no suspicious lesions, warm and dry. HEART: no murmurs, regular rate and rhythm, S1, S2 normal. LUNGS: clear to auscultation bilaterally. ABDOMEN: normal, bowel sounds present, soft, nontender, nondistended. EXTREMITIES: no clubbing, cyanosis, or edema. NEUROLOGIC: nonfocal, alert and oriented. Assessment & Plan Assessment & Plan (1) Stable angina: Code(s): I20.8 - Other forms of angina pectoris Category: Medical (2) S/P CABG x 3: Comment: Stable Code(s): Z95.1 - Presence of aortocoronary bypass graft Category: Surgical (3) Claudication: Comment: With ultrasound duplex showing severe right SFA and profunda disease as well as occluded left SFA. Feeling better with Cilostazol. Code(s): I73.9 - Peripheral vascular disease, unspecified Category: Medical (4) HTN (hypertension): Code(s): I10 - Essential (primary) hypertension Category: Medical Qualifiers: Hypertension type: essential hypertension Qualified Code(s): I10 - Essential (primary) hypertension Plan Pleasant 73-year-old gentleman who is here for follow-up. He has been doing well and has no anginal symptoms. Blood pressure is well controlled. He has peripheral vascular disease and was started on cilostazol and has been doing well since then. He is saying he is able to walk 2-3 blocks at this stage without stopping. Overall clinically stable from cardiovascular point of view. I have advised him to continue to exercise. Follow-up 4 months. Thank you for allowing me to participate in the care of your patient. Please feel free to contact me if you have any questions. Coding Level of Care Code Est Pt Level 4 (23082) Diagnoses Stable angina I20.8 S/P CABG x 3 Z95.1 Claudication I73.9 Essential hypertension I10 Hypertension type: essential hypertension
== END 2024-05-23 11:38 | disposition home or self-care (01) ==
PROVIDERS: PCP Internal Medicine; Visit Provider Internal Medicine Cardiovascular Disease
DX: I20.89 Other forms of angina pectoris (principal); Z95.1 Presence of aortocoronary bypass graft; I73.9 Peripheral vascular disease, unspecified; I10 Essential (primary) hypertension
CPT/HCPCS: 99214

== ENCOUNTER → 2024-05-23 10:07 | Outpatient (BNVA) | payer OTHER, SELFPAY | PROVIDERS: PCP Internal Medicine; Visit Provider Internal Medicine Cardiovascular Disease | DX: I20.89 Other forms of angina pectoris (principal); I10 Essential (primary) hypertension; I73.9 Peripheral vascular disease, unspecified; Z95.1 Presence of aortocoronary bypass graft | CPT/HCPCS: 99212 ==

== ENCOUNTER 2024-08-20 08:08 | Outpatient (REF) | payer OTHER, SELFPAY ==
--- OUTSIDE RECORDS SUMMARY | 2024-08-20 08:15 | XMS_ITS | Clinical Summary ---
Author Organization [address] Address [address] [place] [phone] Phone Care Team Providers Care Pickling Drum Operator Name Role Phone No, Pcp (Do Not Change Name) Primary Care Provid er Unavailable Allergies No known active allergies Medications amLODIPine (NORVASC) 10 MG tablet Take 10 mg by mouth daily.. TK 1 T PO D 1 01/03/2017 Active atorvastatin (LIPITOR) 10 MG tablet Take 10 mg by mouth daily.. TK 1 T PO D 1 12/21/2016 Active ranitidine (ZANTAC) 300 MG tablet Take 300 mg by mouth nightly.. 1 07/07/2016 Active metoprolol tartrate (LOPRESSOR) 50 MG Immediate Release tablet Take 50 mg by mouth 2 (two) times daily.. TK 1 T PO BID 0 12/31/2016 Active lisinopril (PRINIVIL,ZESTRI L) 40 MG tablet Take 40 mg by mouth daily.. TK 1 T PO D 1 10/18/2016 Active DOK 100 mg capsule Take 100 mg by mouth daily.. 2 11/05/2016 Active Social History Tobacco Use Types Packs/Day Years Used Date Smoking Tobacco: Never Assessed Sex and Gender Information Value Date Recorded Sex Assigned at Not on file Legal Sex Male 1:48 PM EDT Gender Identity Not on file Sexual Orientation Not on file Last Filed Vital Signs Vital Sign Reading Time Taken Comments Blood Pressure 146/67 01/19/2017 2:06 PM EDT Pulse 76 01/19/2017 2:06 PM EDT Temperature 36.5 ??C (97.7 ??F) 01/19/2017 2:06 PM ED T Respiratory Rate 18 01/19/2017 2:06 PM EDT Oxygen Saturation 99% 01/19/2017 2:06 PM EDT Inhaled Oxygen Concentration - - Weight - - Height - - Body Mass Index - - Plan of Treatment Health Maintenance Due Date Last Done Comments HIV screening 1962 Hepatitis C screening 08/28/1967 Tetanus adult (Td q 10,TDAP once) 1969 Lipid disorder screening 1989 Colon cancer screening, Colonoscopy 1994 Diabetes screening 1994 Shingles vaccine (Shingrix) (1 of 2 - Shingrix (RZV) 2 Dose Standard Series) 08/28/1999 Pneumococcal Vaccine (50+ ye ars) (1 of 1 - PCV) 2014 Influenza vaccine 01/12/2024 Covid-19 vaccine series (1 - 2023- season) 2024 RSV Discussion (1 - 1-dose 7 5+ series) 2024 Meningococcal Vaccine Aged Out No michael sapphire eligible based on patient's age to complete this topic Insurance [id number] MEDICAID MEDICARE [id number] MEDICAID MEDICARE Member Subscriber Plan / Payer (Ef fective 2014-Present) Name:GoffFerozNate Member ID:[id number] Relation to Subscriber:Self Name:GoffFeroz paultor Subscriber ID:[id number] Payer ID:[id number] Group ID:Not on file Type:Not on file Address: [address] [id number] MEDICAID MEDICARE [id number] MEDICAID MEDICARE [id number] MEDICAID MEDICARE [id number] MEDICAID MEDICARE [id number] MEDICAID MEDICARE Care Teams Pickling Drum Operator Relationship Specialty Start Date End Date No, Pcp (Do Not Change Name) PCP - General 01/19/17
--- OUTSIDE RECORDS SUMMARY | 2024-08-20 08:15 | XMS_ITS | Clinical Summary ---
Author Organization [facility] Address [address] [place] [address] Care Team Providers Care Continuous Improvement Director Name Role Phone Unavailable Primary Care Provider Unavailabl e Source Comments PLEASE NOTE, if this patient is a minor, it may be UNLAWFUL to discuss sensitive information that is contained in these records (such as FAMILY PLANNING, MENTAL HEALTH or SUBSTANCE ABUSE) with the minor patient's parent or other person without the patient's specific authorization.[facility] Social History Tobacco Use Types Packs/Day Years Used Date Smoking Tobacco: Never Assessed Social Connections Answer Date Recorded Connectedness 0 03/02/2024 Financial Resource Strain Answer Date R ecorded Financial Resource Strain 0 2021 Stress Answer Date Recorded Stress 0 03/25/2022 Physical Activity Answer Date Recorded Physical Activity 0 03/25/2022 Food Insecurity Answer Date Recorded Food 0 03/08/2024 Transportation Needs Answer Date Record ed Transportation 0 03/25/2022 Housing Stability Answer Date Recorded Housing 0 03/25/2022 Safety and Environment Answer Date William rded Safety 0 03/25/2022 Utilities Answer Date Recorded Utilities 0 03/25/2022 Employment Answer Date Recorded Stress 0 03/02/2024 Sex and Gender Information Value Date Recorded Sex Assigned at Not on file Legal Sex Male 11:17 AM PST Gender Identity Not on file Sexual Orientation Not on file Plan of Treatment Health Maintenance Due Date Last Done Comments Hepatitis C Screening 1950 Lipid Screening 1949 Tobacco Screening 1950 Hypertension Screening (#1) 08/28/1967 Medicare Annual Wellness Visit 08/28/1967 Imm-DTaP/Tdap/Td (1 - Tdap) 1968 CT Colonography 1994 Colonoscopy 1994 Colorectal Cancer Screening 1994 FIT/gFOBT 1994 Fecal DNA 1994 Flexible Sigmoidoscopy 1994 Imm-Pneumococcal 65+ (1 of 1 - PCV) 08/28/1999 Imm-Zoster, Recombinant (1 of 2) 08/28/1999 Abdominal Aortic Aneurysm Screening 2014 Falls Prevention 2014 [id number] (2023- season) 2024 Imm-Influenza (#1) 2024 Alcohol and Drug Screen 06/13/2024 Depression Annual Screen 06/13/2024 Insurance [facility]
[2024-08-20 09:45] LABS: Alanine Aminotransferase 10 U/L (0-40); Albumin Level 4.1 g/dL (3.5-5.0); Alkaline Phosphatase 64 U/L (39-117); Anion Gap 10 (12-20); Aspartate Amino Transferase 20 U/L (5-37); Bilirubin Total 0.7 mg/dL (0.0-1.0); Blood Urea Nitrogen 27 mg/dL (9-16); Calcium 9.3 mg/dL (8.4-10.2); Carbon Dioxide 26 mmol/L (22-29); Chloride 109 mmol/L (96-108); Cholesterol 125 mg/dL (<200); Estimated Glomerular Filt Rate 53; Glucose Fasting 122 mg/dL (60-99); HDL Cholesterol 47 mg/dL (>40); LDL Cholesterol Calculated 67 mg/dL (<100); Potassium 3.2 mmol/L (3.3-5.1); Sodium 142 mmol/L (135-145); Total Protein 7.9 g/dL (6.5-8.0); Triglycerides 59 mg/dL (<150)
== END 2024-08-20 08:09 | disposition home or self-care (01) ==
LOC: HO.LAB 08:08
PROVIDERS: PCP Internal Medicine; Visit Provider Internal Medicine
DX: I10 Essential (primary) hypertension (principal); E78.5 Hyperlipidemia, unspecified
CPT/HCPCS: 36415; 80053; 80061

== ENCOUNTER 2024-09-26 10:23 | Outpatient (AMB) | payer OTHER, SELFPAY ==
--- NOTE | 2024-09-26 11:05 | A.OFFVIS_ITS ---
Vital Signs 09/26/24 11:07 Height 5 ft 5 in Weight 141 lb 8.588 oz BMI 23.6 BP 130/62 Blood Pressure Location Lt brachial Position Sitting Pulse 64 Pulse Source Pulse Oximeter Intake Visit Reasons: 4 mth f/up Intake Note: 4 mth f/up Oil Well Cable Tool Driller Required: Yes Oil Well Cable Tool Driller Language: Clinical Services Professional Name: idania/mauritian/narendra [id number] Accompanied by: Spouse Allergies No Known Allergies Allergy (Verified 04/19/24 15:50) Medication List - Last Reconciled 09/26/24 by Jus Callejas MD amlodipine 10 mg PO DAILY aspirin (Adult Aspirin Regimen) 81 mg PO DAILY 90 days atorvastatin 20 mg PO DAILY 90 days chlorthalidone 25 mg PO DAILY cilostazol 50 mg PO BID 90 days clotrimazole 1% (Antifungal (clotrimazole)) 1 appl topical BID 2 weeks docusate sodium 100 mg PO BID 90 days lisinopril 20 mg PO DAILY 90 days meloxicam 15 mg PO DAILY 90 days metoprolol tartrate 50 mg PO BID 90 days multivitamin 1 tab PO DAILY 90 days omeprazole 20 mg PO BID 90 days simethicone (Gas Relief (simethicone)) 250 mg (2 x 125 mg) PO BID PRN 30 days HPI Comments Details: Very pleasant 74-year-old gentleman with background history of coronary arteries bypass surgery performed in 2012. It appears he has 3 bypasses with FAULKNER to LAD, vein graft to diagonal and vein graft to OM. Based on records at [facility] his ejection fraction was initially low but as of an echocardiogram in 2018 his LVEF is 50-55% with inferior scar. He said before CABG he had burning chest discomfort with exercise. This has not happened since the bypass surgery. In 2013 he had peripheral angiography by Dr. Nixon and underwent right common iliac as well as left external iliac artery stenting. 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 He also had severe right SFA stenosis at that time. He is complaining that he has leg pain when he walks 1 block. He is pointing to thighs as well as both calves. No open wounds or ulcers on the feet. No nighttime symptoms. He has been compliant with medications. He does not smoke but is a former smoker. At this stage he was referred for ankle-brachial index and ultrasound assessment. ABIs were abnormal and he was found to have a high-grade stenosis in the right SFA and occluded left SFA. 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 He returns for f/u. 07/21/22: He has been doing well and does not have significant claudication. He is complaining of anorexia and weight loss. He has never had a colonoscopy. He has some GI upset which can be due to cilostazol but he has been experiencing anorexia and weight loss. We referred him to GI for further work up. It appears he did not show up for the appointment. 12/15/22: He is here for follow-up. He is saying that things are stable he still has mild claudication but does not have any progressive symptoms. He is nicho ating the us last dose all at 50 mg twice a day. He continues to have anorexia and does not feel like eating anything. He never had any colonoscopy. We discussed about previous referral to GI and he is saying that he has not received any calls. We will arrange an appointment for him. No chest discomfort shortness of breath. 04/25/23: He returns for follow-up. He is denying chest discomfort. He is saying that his claudication has improved since he has been taking cilostazol. Taking medications regularly. He has seen GI and will be considering EGD. He was also advised to do colonoscopy but he has not made up his mind. 10/24/2023: He returns for follow-up. Denying any chest discomfort shortness of breath. He continues to get some claudication but saying that he can walk up to 1-1/2 block and then gets claudication symptoms. He is tolerating cilostazol. Blood pressure is elevated and manual recheck by myself was 150/70. He has been taking medications regularly otherwise. 01/16/2024: He is here for follow-up. He is denying any chest pain or shortness of breath. Blood pressure is well controlled. He is saying he is able to walk a block. On cilostazol. He underwent barium swallow which is showing concern for achalasia. He has been getting some issues with swallowing and episodes where he choked. I have discussed with GI and he will be given an urgent appointment. 05/23/2024: He returns for follow-up. He has been using cilostazol and is able to walk 2-3 blocks at this stage. Denying any chest discomfort shortness of breath. Overall doing quite well. Blood pressure is well controlled. 09/26/2024: He is here for follow-up. He is saying that he goes up and down stairs multiple times during the day without any problems. No chest discomfort shortness of breath. His anginal symptoms were a burning sensation in the chest which he has not encountered since coronary artery bypass surgery in 2012. He is taking cilostazol and is denying any significant claudication. He is planning to go to [place] and plans to walk and exercise more there. PFSH Surgical History S/P CABG x 3 Family History Father No problems noted. Mother No problems noted. Social History Housing: House Alcohol intake: never Patient Tobacco Use Status: Former Tobacco user Years Smoked: 30+ e-Cigarette/Vaping Use: Never Used Second Hand Smoke Exposure: No service: No Current occupational status: disabled Cognitive needs: No Hearing needs: No Vision needs: No Review of Systems Const Denies chills, Denies fatigue, Denies fever(s), Denies frequent falls, Denies weakness, Denies weight gain and Denies weight loss ENT Denies dizziness Card Denies chest pain, Denies leg edema, Denies lightheadedness, Denies palpitations, Denies dyspnea and Denies dyspnea on exertion Resp Denies cough, Denies dyspnea and Denies dyspnea on exertion GI Denies hematochezia Musc Denies abnormal gait, Denies muscle weakness, Denies numbness, Denies radiating pain into limb and Denies tingling Neuro Denies abnormal gait, Denies dizziness, Denies frequent falls, Denies numbness, Denies tingling and Denies weakness Endo Denies fatigue and Denies palpitations Physical Exam Vital Signs: Last Vital Signs Pulse 64 09/26/24 11:07 BP 130/62 09/26/24 11:07 BMI result Body Mass Index 23.6 GENERAL APPEARANCE: in no acute distress, well developed, well nourished. HEENT: unremarkable. HEAD: normocephalic, atraumatic. NECK/THYROID: no carotid bruit, no jugular venous distention. SKIN: no suspicious lesions, warm and dry. HEART: no murmurs, regular rate and rhythm, S1, S2 normal. LUNGS: clear to auscultation bilaterally. ABDOMEN: normal, bowel sounds present, soft, nontender, nondistended. EXTREMITIES: no clubbing, cyanosis, or edema. NEUROLOGIC: nonfocal, alert and oriented. Assessment & Plan Assessment & Plan (1) HTN (hypertension): Code(s): I10 - Essential (primary) hypertension Category: Medical Qualifiers: Hypertension type: essential hypertension Qualified Code(s): I10 - Essential (primary) hypertension (2) HLD (hyperlipidemia): Code(s): E78.5 - Hyperlipidemia, unspecified Category: Medical Qualifiers: Hyperlipidemia type: mixed hyperlipidemia Qualified Code(s): E78.2 - Mixed hyperlipidemia (3) PVD (peripheral vascular disease): Comment: As below Code(s): I73.9 - Peripheral vascular disease, unspecified Category: Medical (4) S/P CABG x 3: Comment: Stable Code(s): Z95.1 - Presence of aortocoronary bypass graft Category: Surgical Plan [age] year gentleman with background history of coronary artery bypass grafting and peripheral vascular disease. He is here for follow-up. He is saying he is stable and has no symptoms. His anginal symptoms were a burning sensation in the chest which she has not had since CABG. We have been managing his lower extremity claudication symptoms with cilostazol and he has been doing well. He is saying he is going to [place] and will be walking more there. Overall clinically stable. No heart failure symptoms. Follow-up with us in 6 months. Thank you for allowing me to participate in the care of your patient. Please feel free to contact me if you have any questions. Coding Level of Care Code Est Pt Level 4 (25788) Diagnoses Essential hypertension I10 Hypertension type: essential hypertension Mixed hyperlipidemia E78.2 Hyperlipidemia type: mixed hyperlipidemia PVD (peripheral vascular disease) I73.9 S/P CABG x 3 Z95.1
[2024-09-26 11:07] VITALS: BP 130/62; PULSE 64; BMI 23.6
--- OUTSIDE RECORDS SUMMARY | 2024-09-26 12:08 | XMS_ITS | Clinical Summary ---
Author Organization [facility] Address [address] [place] [address] Care Team Providers Care Manufacturing Worker Name Role Phone Unavailable Primary Care Provider [...] 08/28/1999 Imm-Zoster, Recombinant (1 of 2) 08/28/1999 Falls Prevention 2014 [id number] ( - 2023- season) 2024 Imm-Influenza (#1) 2024 Alcohol and Drug Screen 06/13/2024 Depression Annual Screen 06/13/2024 Insurance [facility] Member Subscriber Plan / Payer (Ef fective 2021-Present) Name:Nate Lepe Relation to Subscriber:Self Name:Nate Lepe Payer ID:[id number] Group ID:Not on file Type:Medicare Address: [place] [id number]
--- OUTSIDE RECORDS SUMMARY | 2024-09-26 12:08 | XMS_ITS | Clinical Summary ---
Author Organization [address] Address [address] [place] [phone] Phone Care Team Providers Care Story Teller Name Role Phone No, Pcp (Do Not [...] cancer screening, Colonoscopy 1994 Diabetes screening 1994 Pneumococcal Vaccine (50+ ye ars) (1 of 1 - PCV) 08/28/1999 Shingles vaccine (Shingrix) (1 of 2 - Shingrix (RZV) 2 Dose Standard Series) 08/28/1999 Covid-19 vaccine series (1 - 2023- season) 2024 RSV Immunization (1 - 1-dose 75+ series) 2024 Influenza vaccine 02/11/2025 Meningococcal Vaccine Aged Out No michael sapphire eligible based on patient's age to complete this topic Insurance [id number] MEDICAID MEDICARE [id number] MEDICAID MEDICARE [id number] MEDICAID MEDICARE [id number] MEDICAID MEDICARE [id number] MEDICAID MEDICARE [id number] MEDICAID MEDICARE [id number] MEDICAID MEDICARE Member Subscriber Plan / Payer (Ef fective 2014-Present) Name:Feroz Gofftor Member ID:[id number] Relation to Subscriber:Self Name:GoffFeroz paultor Subscriber ID:[id number] Payer ID:[id number] Group ID:Not on file Type:Not on file Address: [address] [place] [phone] Care Teams Story Teller Relationship Specialty Start Date End Date No, Pcp (Do Not Change Name) PCP - General 01/19/17
== END 2024-09-26 11:39 | disposition home or self-care (01) ==
PROVIDERS: PCP Internal Medicine; Visit Provider Internal Medicine Cardiovascular Disease
DX: I10 Essential (primary) hypertension (principal); E78.2 Mixed hyperlipidemia; I73.9 Peripheral vascular disease, unspecified; Z95.1 Presence of aortocoronary bypass graft
CPT/HCPCS: 99214

== ENCOUNTER → 2024-09-26 10:23 | Outpatient (BNVA) | payer OTHER, SELFPAY | PROVIDERS: PCP Internal Medicine; Visit Provider Internal Medicine Cardiovascular Disease | DX: I73.9 Peripheral vascular disease, unspecified (principal); I10 Essential (primary) hypertension; E78.2 Mixed hyperlipidemia; Z95.1 Presence of aortocoronary bypass graft | CPT/HCPCS: 99212 ==

== ENCOUNTER 2024-10-02 13:34 | Outpatient (AMB) | payer OTHER, SELFPAY ==
--- NOTE | 2024-10-02 13:46 | A.OFFPC_ITS ---
Vital Signs 10/02/24 13:49 Height 5 ft 5 in Weight 116 lb BMI 19.3 BP 102/60 Blood Pressure Location Lt brachial Position Sitting Intake Visit Reasons: pad Couples Therapist Required: No Accompanied by: Spouse Allergies No Known Allergies Allergy (Verified 10/02/24 13:56) Medication List - Last Reconciled 10/02/24 by Sheridan Yates MD amlodipine 10 mg PO DAILY aspirin (Adult Aspirin Regimen) 81 mg PO DAILY 90 days atorvastatin 20 mg PO DAILY 90 days chlorthalidone 25 mg PO DAILY cilostazol 50 mg PO BID 90 days clotrimazole 1% (Antifungal (clotrimazole)) 1 appl topical BID 2 weeks docusate sodium 100 mg PO BID 90 days lisinopril 20 mg PO DAILY 90 days meloxicam 15 mg PO DAILY 90 days metoprolol tartrate 50 mg PO BID 90 days multivitamin 1 tab PO DAILY 90 days omeprazole 20 mg PO BID 90 days simethicone (Gas Relief (simethicone)) 250 mg (2 x 125 mg) PO BID PRN 30 days Tobacco use date assessed: 10/02/24 Fall risk assessment: No Falls in past year Last assessed Fall Risk: 10/02/24 Dental Screening Dental Screen Date: 10/02/24 Did you have a dental visit in the last 12 months?: No Did you have a dental problem in the last 6 months where you did not have access to dental care?: No Was dental information given to patient?: Patient has dentist HPI HPI Comments History of Present Illness Details The patient is a 74-year-old male presenting for medication review and management of chronic conditions. His history includes coronary artery disease with previous bypass surgeries, ongoing claudication related to peripheral arterial disease, and essential hypertension well-managed with amlodipine and lisinopril. The patient's hyperlipidemia is controlled with atorvastatin. Prediabetes is also a concern, evidenced by a fasting glucose level of 122 mg/dL. The renal function test taken last month revealed a glomerular filtration rate of 53 ml/min. His social history notes a prior extensive smoking history with cessation around 12 years ago, impacting his vascular health. Claudication symptoms have contributed to decreased physical activity due to peripheral vascular disease. Furthermore, he manages gastroesophageal reflux disease with omeprazole and treats constipation with docusate. Recently, he experienced an allergic reaction manifesting as a neck rash that resolved promptly. [facility] Medical History (Updated 10/02/24 @ 15:39 by Sheridan Yates MD) Stable angina Surgical History S/P CABG x 3 Family History Father No problems noted. Mother No problems noted. Social History Housing: House Alcohol intake: never Patient Tobacco Use Status: Former Tobacco user Years Smoked: 30+ e-Cigarette/Vaping Use: Never Used Second Hand Smoke Exposure: No service: No Current occupational status: disabled Cognitive needs: No Hearing needs: No Vision needs: No Questionnaire PHQ-9 Over the last 2 weeks, how often have you been bothered by any of the following problems? 1. Little interest or pleasure in doing things: not at all 2. Feeling down, depressed, or hopeless: not at all 3. Trouble falling or staying asleep, or sleeping too much: not at all 4. Feeling tired or having little energy: not at all 5. Poor appetite or overeating: not at all 6. Feeling bad about yourself - or that you are a failure or have let yourself or your family down: not at all 7. Trouble concentrating on things, such as reading the newspaper or watching television: not at all 8. Moving or speaking so slowly that other people could have noticed. Or the opp osite - being so fidgety or restless that you have been moving around a lot more than usual: not at all 9. Thoughts that you would be better off or of hurting yourself in some way: not at all Total score: 0 Depression Screening Interpretation: Negative Depression Screening Done: Yes 93969 - PHQ-9 Billing: Yes Source: Developed by Drs. Kendrick Jerez, Bobbi Ghotra, Joshua Franco and colleagues, with an educational dayana from [employer]. Thrive Questionnaire Date Thrive assessed: 10/02/24 I am a: Patient What is your living situation today?: I have a steady place to live Within the past 12 months, did the food you bought not last and you didn't have the money to get more?: Never true Within the past 12 months, did you worry whether your food would run out before you got money to buy more?: Never true Do you have trouble paying for medicines?: No Do you have trouble getting transportation to medical appointments?: No Do you have trouble paying your heating and electricity bill?: No Do you have trouble taking care of your child, family member or friend?: No Do you have trouble with day-to-day activities such as bathing, preparing meals, shopping, managing finances, etc.?: No Are you currently unemployed and looking for a job?: No Are you interested in more education?: No Please select the resources that you would like help with: None Currently or been in a relationship where the following occur: No concerns reported THRIVE Score: 0 AUDIT C Alcohol Use Questionnaire (AUDIT-C) 1. How often do you have a drink containing alcohol?: Never Total Score: 0 Score Reviewed/Action Taken: No DERRICK-7 AMB Questionnaire DERRICK-7 Date DERRICK - 7 assessed: 10/02/24 Feeling nervous, anxious, or on edge: 0 = Not at all Not being able to stop or control worryin = Not at all Worrying too much about different things: 0 = Not at all Trouble relaxin = Not at all Being so restless that it is hard to sit still: 0 = Not at all Becoming easily annoyed or irritable: 0 = Not at all Feeling afraid as if something awful might happen: 0 = Not at all Total DERRICK-7 score (0-4 normal; 5-9 mild; 10-14 moderate; 15-21 severe): 0 Source: Developed by Drs. Kendrick Jerez, Bobbi Ghotra, Joshua Franco and colleagues, with an educational dayana from [employer]. DERRICK-7 Assessment Billing DERRICK-7 Assessment Tool: DERRICK-7 Assessment 78423 Review of Systems Const All systems reviewed & are unremarkable except as noted in HPI and below Card Denies chest pain at rest, Denies chest pain with activity, Denies edema, Denies irregular heart rhythm, Denies claudication, Denies dyspnea, Denies dyspnea on exertion, Denies orthopnea, Denies paroxysmal nocturnal dyspnea and Denies slow heart rate Resp Denies cough, Denies dyspnea and Denies dyspnea on exertion GI Denies abdominal pain, Denies change in bowel habits, Denies excessive flatus, Denies nausea and Denies vomiting Denies urinary hesitancy, Denies urinary incontinence and Denies urinary urgency Musc Denies abnormal gait, Denies atrophy, Denies deformity and Denies limited range of motion Skin/Breast Denies bleeding lesions, Denies changing lesions and Denies rash Neuro Denies abnormal gait and Denies lack of coordination Physical exam (Primary Care) Vital Signs: Last Vital Signs BP 102/60 10/02/24 13:49 BMI result Body Mass Index 19.3 BMI Assessment/Plan discussion: Low BMI Low, Plan discussed: lifestyle, increase calorie intake and dietary Tobacco/Smoking Status: Tobacco use Status Tobacco use date assessed 10/02/24 10/02/24 13:53 Patient Tobacco Use Status Former Tobacco user 10/02/24 13:53 e-Cigarette/Vaping Use Never Used 10/02/24 13:53 PHQ-9: PHQ-9 Score PHQ-9: Total score 0 10/02/24 14:00 Depression Screening Interpretation: Negative Thrive Assessment: Date of Thrive Assessment Date Thrive assessed 10/02/24 10/02/24 13:53 Currently or been in a relationship where the following occur: No concerns reported Resp Effort & Inspection: normal respiratory effort Auscultation: clear to auscultation bilaterally Cardio Jugular venous distension: no JVD Rate: regular rate Rhythm: regular rhythm Heart sounds: S1 normal heart sound present and S2 normal heart sound present Skin General skin exam: no rashes or lesions noted Neuro General: no focal motor deficits Extrem General: Yes full ROM Coding Level of Care Code Est Pt Level 4 (68628) Complex EM visit Add On G2211 Diagnoses Claudication I73.9 CAD (coronary artery disease) I25.10 PVD (peripheral vascular disease) I73.9 Essential hypertension I10 Hypertension type: essential hypertension Mixed hyperlipidemia E78.2 Hyperlipidemia type: mixed hyperlipidemia Chronic constipation K59.09 Additional Codes DERRICK-7 Assessment Billing - DERRICK-7 Assessment Tool: DERRICK-7 Assessment 97911 ([id number]) PHQ-9 - 43124 - PHQ-9 Billing: Yes ([id number]) Time Spent (min) 23 Assessment & Plan Assessment & Plan (1) Claudication: Comment: With ultrasound duplex showing severe right SFA and profunda disease as well as occluded left SFA. Feeling better with Cilostazol. Code(s): I73.9 - Peripheral vascular disease, unspecified Category: Medical (2) CAD (coronary artery disease): Code(s): I25.10 - Atherosclerotic heart disease of red devil coronary artery without angina pectoris Category: Medical (3) PVD (peripheral vascular disease): Comment: As below Code(s): I73.9 - Peripheral vascular disease, unspecified Category: Medical (4) HTN (hypertension): Code(s): I10 - Essential (primary) hypertension Category: Medical Qualifiers: Hypertension type: essential hypertension Qualified Code(s): I10 - Essential (primary) hypertension (5) HLD (hyperlipidemia): Code(s): E78.5 - Hyperlipidemia, unspecified Category: Medical Qualifiers: Hyperlipidemia type: mixed hyperlipidemia Qualified Code(s): E78.2 - Mixed hyperlipidemia (6) Chronic constipation: Code(s): K59.09 - Other constipation Category: Medical Plan Medications for hypertension and hyperlipidemia should continue unchanged, and prediabetes should be monitored with a planned evaluation of glucose levels in four months. Renal function will be evaluated regularly and depends upon maintaining optimal kidney function through lifestyle and pharmacological interventions. Further evaluation of the allergic dermatitis should be conducted if it reoccurs. Chronic conditions like gastroesophageal reflux disease and constipation will continue management with current therapies. 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 The follow-up will assess prediabetes status changes and make necessary th erapeutic adjustments. Patient was informed and verbally consented to the use of an ambient scribe for clinic note documentation during this visit. During this visit, we reviewed the management of the patient?s chronic conditions, including coronary artery disease, peripheral arterial disease, hypertension, hyperlipidemia, and prediabetes. Discussed the importance of controlling glucose levels and monitoring kidney function closely. Advised to return in four months for reevaluation of glucose levels, which could influence treatment plan alterations. Management options for allergic dermatitis were discussed should symptoms return. Emphasized the importance of continuing medication adherence, maintaining a heart-healthy lifestyle, and monitoring changes in claudication symptoms. Orders: Orders Comprehensive [place]. Panel Fast 4 Months I10 - Essential (primary) hypertension Lipid Panel 4 Months E78.5 - Hyperlipidemia, unspecified, I10 - Essential (primary) hypertension Patient Instructions: - Continue all current medications as prescribed. - Monitor blood sugar levels as previously instructed. - Maintain a heart-healthy diet and lifestyle. - Schedule follow-up in four months, or if needed, contact sooner if new symptoms or concerns arise. - Monitor any reoccurrence of skin rash and report to the office if it reappears.
[2024-10-02 13:49] VITALS: BP 102/60; BMI 19.3
--- OUTSIDE RECORDS SUMMARY | 2024-10-02 16:04 | XMS_ITS | Clinical Summary ---
Author Organization [facility] Address [address] [place] [address] Care Team Providers Care Terry Cloth Cutter Hand Name Role Phone Unavailable Primary Care Provider [...] (1 of 2) 08/28/1999 Falls Prevention 2014 [id number] ( - 2023- season) 2024 Imm-Influenza (#1) 2024 Alcohol and Drug Screen 06/13/2024 Depression Annual Screen 06/13/2024 Insurance [facility] [facility] Member Subscriber Plan / Payer (Ef fective 2021-Present) Name:Nate Lepe Relation to Subscriber:Self Name:Nate Lepe Payer ID:[id number] Group ID:Not on file Type:Medicare Address: [place] [id number]
--- OUTSIDE RECORDS SUMMARY | 2024-10-02 16:04 | XMS_ITS | Clinical Summary ---
Author Organization [address] Address [address] [place] [phone] Phone Care Team Providers Care Flat Clothier Name Role Phone No, Pcp (Do Not [...] patient's age to complete this topic Insurance [id number] MEDICAID MEDICARE [id number] MEDICAID MEDICARE [id number] MEDICAID MEDICARE [id number] MEDICAID MEDICARE [id number] MEDICAID MEDICARE [id number] MEDICAID MEDICARE [id number] MEDICAID MEDICARE Member Subscriber Plan / Payer (Ef fective 2014-Present) Name:Feroz Gofftor Member ID:[id number] Relation to Subscriber:Self Name:GoffFeroz paultor Subscriber ID:[id number] Payer ID:[id number] Group ID:Not on file Type:Not on file Address: [address] [place] [phone] Care Teams Flat Clothier Relationship Specialty Start Date End Date No, Pcp (Do Not Change Name) PCP - General 01/19/17
== END 2024-10-02 14:07 | disposition home or self-care (01) ==
LOC: HO.HMCH 13:34
PROVIDERS: PCP Internal Medicine; Visit Provider Internal Medicine
DX: I73.9 Peripheral vascular disease, unspecified (principal); I25.10 Atherosclerotic heart disease of native coronary artery without angina pectoris; I10 Essential (primary) hypertension; E78.2 Mixed hyperlipidemia; K59.09 Other constipation

== ENCOUNTER → 2024-10-02 13:34 | Outpatient (BNVA) | payer OTHER, SELFPAY | PROVIDERS: PCP Internal Medicine; Visit Provider Internal Medicine | DX: I10 Essential (primary) hypertension (principal); I25.10 Atherosclerotic heart disease of native coronary artery without angina pectoris; I73.9 Peripheral vascular disease, unspecified; E78.2 Mixed hyperlipidemia; K59.09 Other constipation | CPT/HCPCS: 96127; 99212 ==

== ENCOUNTER 2025-01-17 06:40 | Outpatient (REF) | payer OTHER, SELFPAY ==
--- OUTSIDE RECORDS SUMMARY | 2025-01-17 06:42 | XMS_ITS | Clinical Summary ---
Author Organization [facility] Address [address] [place] [address] Care Team Providers Care General Agent Name Role Phone Unavailable Primary Care Provider [...] Fecal DNA 1994 Flexible Sigmoidoscopy 1994 Imm-Pneumococcal 50+ (1 of 1 - PCV) 08/28/1999 Imm-Zoster, Recombinant (1 of 2) 08/28/1999 Falls Prevention 2014 [id number] (1 - 2023- season) 2024 Alcohol and Drug Screen 06/13/2024 Depression Annual Screen 06/13/2024 Imm-RSV (adult) (1 - 1-dose 75+ series) 2024 Imm-Influenza (#1) 2025 Insurance [facility] - D[facility]AL
--- OUTSIDE RECORDS SUMMARY | 2025-01-17 06:42 | XMS_ITS | Clinical Summary ---
Author Organization [address] Address [address] [place] [phone] Phone Care Team Providers Care Furniture Designer Name Role Phone No, Pcp (Do Not [...] 76 01/19/2017 2:06 PM EDT Temperature 36.5 C (97.7 F) 01/19/2017 2:06 PM EDT Respiratory Rate 18 01/19/2017 2:06 PM EDT [...] patient's age to complete this topic Insurance [id number] MEDICAID MEDICARE [id number] MEDICAID MEDICARE Member Subscriber Plan / Payer (Ef fective 2014-Present) Name:GoffFerozNate Member ID:[id number] Relation to Subscriber:Self Name:Feroz Gofftor Subscriber ID:[id number] Payer ID:[id number] Group ID:Not on file Type:Not on file Address: [address] [id number] MEDICAID MEDICARE [id number] MEDICAID MEDICARE [id number] MEDICAID MEDICARE [id number] MEDICAID MEDICARE [id number] MEDICAID MEDICARE Care Teams Furniture Designer Relationship Specialty Start Date End Date No, Pcp (Do Not Change Name) PCP - General 01/19/17
[2025-01-17 08:26] LABS: Alanine Aminotransferase 10 U/L (0-40); Albumin Level 4.2 g/dL (3.5-5.0); Alkaline Phosphatase 55 U/L (39-117); Anion Gap 13 (12-20); Aspartate Amino Transferase 25 U/L (5-37); Blood Urea Nitrogen 30 mg/dL (9-16); Calcium 9.5 mg/dL (8.4-10.2); Carbon Dioxide 26 mmol/L (22-29); Chloride 108 mmol/L (96-108); Cholesterol 112 mg/dL (<200); Estimated Glomerular Filt Rate 45; HDL Cholesterol 38 mg/dL (>40); Potassium 4.1 mmol/L (3.3-5.1); Sodium 143 mmol/L (135-145); Total Protein 7.1 g/dL (6.5-8.0); Triglycerides 73 mg/dL (<150)
== END 2025-01-17 06:41 | disposition home or self-care (01) ==
LOC: HO.LAB 06:40
PROVIDERS: PCP Internal Medicine; Visit Provider Internal Medicine
DX: Z00.00 Encounter for general adult medical examination without abnormal findings (principal); E78.5 Hyperlipidemia, unspecified
CPT/HCPCS: 36415; 80053; 80061

== ENCOUNTER 2025-02-12 13:30 | Outpatient (AMB) | payer OTHER, SELFPAY ==
--- NOTE | 2025-02-12 13:31 | MHC.PC.OV ---
Vital Signs 02/12/25 13:32 Height 5 ft 5 in Weight 114 lb BMI 19.0 BP 112/46 L Blood Pressure Location Lt brachial Position Sitting Respiration 18 Pulse 67 Pulse Source Pulse Oximeter Temp 97.5 F Temp Source Temporal Artery Scan Pulse Oximetry (%) 94 Oxygen Delivery Method Room Air Intake Visit Reasons: pad Chief Technician Required: No Accompanied by: Self / Same As Patient Allergies No Known Allergies Allergy (Verified 02/12/25 14:22) Medication List - Last Reconciled 02/12/25 by Sheridan Yates MD amlodipine 10 mg PO DAILY aspirin (Adult Aspirin Regimen) 81 mg PO DAILY 90 days atorvastatin 20 mg PO DAILY 90 days [Back brace As directed] chlorthalidone 25 mg PO DAILY cilostazol 50 mg PO BID 90 days clotrimazole 1% (Antifungal (clotrimazole)) 1 appl topical BID 2 weeks docusate sodium 100 mg PO BID 90 days [hand held shower head As directed] lisinopril 20 mg PO DAILY 90 days meloxicam 15 mg PO DAILY 90 days metoprolol tartrate 50 mg PO BID 90 days multivitamin 1 tab PO DAILY 90 days omeprazole 20 mg PO BID 90 days [Shower head extension As directed] simethicone (Gas Relief (simethicone)) 250 mg (2 x 125 mg) PO BID PRN 30 days [Suction grab bars As directed] Tobacco use date assessed: 02/12/25 Fall risk assessment: No Falls in past year Last assessed Fall Risk: 02/12/25 Dental Screening Dental Screen Date: 02/12/25 Did you have a dental visit in the last 12 months?: No Did you have a dental problem in the last 6 months where you did not have access to dental care?: No Was dental information given to patient?: No HPI HPI Comments History of Present Illness Details This is a 74-year-old male with hypertension, hyperlipidemia, peripheral vascular disease, GERD and constipation that comes today for follow-up on his conditions. Blood pressure well controlled. Constipation stable with medications as needed. GERD stable with PPIs. Peripheral vascular disease is follow by vascular surgery and he still complains of some pain in legs but has improved. Cholesterol well controlled with statins. Reports no side effects from medication. [facility] Medical History Stable angina Surgical History S/P CABG x 3 Family History Father No problems noted. Mother No problems noted. Social History (Updated 02/12/25 @ 14:31 by Sheridan Yates MD) Housing: House Alcohol intake: former Patient Tobacco Use Status: Former Tobacco user Years Smoked: 30+ e-Cigarette/Vaping Use: Never Used Second Hand Smoke Exposure: No service: No Current occupational status: disabled Cognitive needs: No Hearing needs: No Vision needs: No Questionnaire PHQ-9 Over the last 2 weeks, how often have you been bothered by any of the following problems? 1. Little interest or pleasure in doing things: not at all 2. Feeling down, depressed, or hopeless: not at all 3. Trouble falling or staying asleep, or sleeping too much: not at all 4. Feeling tired or having little energy: not at all 5. Poor appetite or overeating: not at all 6. Feeling bad about yourself - or that you are a failure or have let yourself or your family down: not at all 7. Trouble concentrating on things, such as reading the newspaper or watching television: not at all 8. Moving or speaking so slowly that other people could have noticed. Or the opposite - being so fidgety or restless that you have been moving around a lot more than usual: not at all 9. Thoughts that you would be better off or of hurting yourself in some way: not at all Total score: 0 Depression Screening Interpretation: Negative Depression Screening Done: Yes 95935 - PHQ-9 Billing: Yes Source: Developed by Drs. Kendrick Jerez, Bobbi Ghotra, Joshua Franco and colleagues, with an educational dayana from [employer]. Thrive Questionnaire Date Thrive assessed: 02/12/25 I am a: Patient What is your living situation today?: I have a steady place to live Within the past 12 months, did the food you bought not last and you didn't have the money to get more?: Never true Within the past 12 months, did you worry whether your food would run out before you got money to buy more?: Never true Do you have trouble paying for medicines?: No Do you have trouble getting transportation to medical appointments?: No Do you have trouble paying your heating and electricity bill?: No Do you have trouble taking care of your child, family member or friend?: No Do you have trouble with day-to-day activities such as bathing, preparing meals, shopping, managing finances, etc.?: No Are you currently unemployed and looking for a job?: No Are you interested in more education?: No Please select the resources that you would like help with: None Currently or been in a relationship where the following occur: No concerns reported THRIVE Score: 0 AUDIT C Alcohol Use Questionnaire (AUDIT-C) 1. How often do you have a drink containing alcohol?: Never Total Score: 0 Score Reviewed/Action Taken: No DERRICK-7 AMB Questionnaire DERRICK-7 Date DERRICK - 7 assessed: 02/12/25 Feeling nervous, anxious, or on edge: 0 = Not at all Not being able to stop or control worryin = Not at all Worrying too much about different things: 0 = Not at all Trouble relaxin = Not at all Being so restless that it is hard to sit still: 0 = Not at all Becoming easily annoyed or irritable: 0 = Not at all Feeling afraid as if something awful might happen: 0 = Not at all Total DERRICK-7 score (0-4 normal; 5-9 mild; 10-14 moderate; 15-21 severe): 0 Source: Developed by Drs. Kendrick Jerez, Bobbi Ghotra, Joshua Franco and colleagues, with an educational dayana from [employer]. DERRICK-7 Assessment Billing DERRICK-7 Assessment Tool: DERRICK-7 Assessment 97351 Review of Systems Const All systems reviewed & are unremarkable except as noted in HPI and below Card Denies chest pain at rest, Denies chest pain with activity, Denies edema, Denies irregular heart rhythm, Denies claudication, Denies dyspnea, Denies dyspnea on exertion, Denies orthopnea, Denies paroxysmal nocturnal dyspnea and Denies slow heart rate Resp Denies cough, Denies dyspnea and Denies dyspnea on exertion GI Denies abdominal pain, Denies change in bowel habits, Denies excessive flatus, Denies nausea and Denies vomiting Neuro Denies behavioral changes and Denies lack of coordination Psych Denies behavioral changes Endo Denies cold intolerance Physical exam (Primary Care) Vital Signs: Last Vital Signs Temp 97.5 F 02/12/25 13:32 Pulse 67 02/12/25 13:32 Resp 18 02/12/25 13:32 BP 112/46 L 02/12/25 13:32 Pulse Ox 94 02/12/25 13:32 Oxygen Delivery Method Room Air 02/12/25 13:32 BMI result Body Mass Index 19.0 Tobacco/Smoking Status: Tobacco use Status Tobacco use date assessed 02/12/25 02/12/25 13:38 Patient Tobacco Use Status Former Tobacco user 02/12/25 14:31 e-Cigarette/Vaping Use Never Used 02/12/25 14:31 PHQ-9: PHQ-9 Score PHQ-9: Total score 0 02/12/25 14:24 Depression Screening Interpretation: Negative Thrive Assessment: Date of Thrive Assessment Date Thrive assessed 02/12/25 02/12/25 13:38 Currently or been in a relationship where the following occur: No concerns reported Resp Effort & Inspection: normal respiratory effort Auscultation: clear to auscultation bilaterally Cardio Jugular venous distension: no JVD Rate: regular rate Rhythm: regular rhythm Heart sounds: S1 normal heart sound present and S2 normal heart sound present Extrem General: Yes full ROM Coding Level of Care Code Est Pt Level 4 (68751) Complex EM visit Add On G2211 Diagnoses PVD (peripheral vascular disease) I73.9 Mixed hyperlipidemia E78.2 Hyperlipidemia type: mixed hyperlipidemia Essential hypertension I10 Hypertension type: essential hypertension Gastroesophageal reflux disease without esophagitis K21.9 Esophagitis presence: without esophagitis Chronic constipation K59.09 Additional Codes DERRICK-7 Assessment Billing - DERRICK-7 Assessment Tool: DERRICK-7 Assessment 25208 ([id number]) PHQ-9 - 44582 - PHQ-9 Billing: Yes ([id number]) Time Spent (min) 22 Assessment & Plan Assessment & Plan (1) PVD (peripheral vascular disease): Comment: As below Code(s): I73.9 - Peripheral vascular disease, unspecified Category: Medical (2) HLD (hyperlipidemia): Code(s): E78.5 - Hyperlipidemia, unspecified Category: Medical Qualifiers: Hyperlipidemia type: mixed hyperlipidemia Qualified Code(s): E78.2 - Mixed hyperlipidemia (3) HTN (hypertension): Code(s): I10 - Essential (primary) hypertension Category: Medical Qualifiers: Hypertension type: essential hypertension Qualified Code(s): I10 - Essential (primary) hypertension (4) GERD (gastroesophageal reflux disease): Code(s): K21.9 - Gastro-esophageal reflux disease without esophagitis Category: Medical Qualifiers: Esophagitis presence: without esophagitis Qualified Code(s): K21.9 - Gastro-esophageal reflux disease without esophagitis (5) Chronic constipation: Code(s): K59.09 - Other constipation Category: Medical Plan Continue current meds. Follow-up with vascular surgery. Keep blood pressure less than 130/80. Keep LDL less than 70.
[2025-02-12 13:32] VITALS: BP 112/46; PULSE 67; RESP 18; TEMP 36.4; O2SAT 94; BMI 19.0
--- OUTSIDE RECORDS SUMMARY | 2025-02-12 14:47 | XMS_ITS | Clinical Summary ---
Author Organization [facility] Address [address] [place] [address] Care Team Providers Care Sequins Spooler Name Role Phone Unavailable Primary Care Provider [...] (1 of 2) 08/28/1999 Falls Prevention 2014 [id number] (1 - 2023- season) 2024 Alcohol and Drug Screen 06/13/2024 Depression Annual Screen 06/13/2024 Imm-RSV (adult) (1 - 1-dose 75+ series) 2024 Imm-Influenza (#1) 2025 Insurance [facility]
--- OUTSIDE RECORDS SUMMARY | 2025-02-12 14:48 | XMS_ITS | Clinical Summary ---
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 Name Role Phone No, Pcp (Do [...] Shingrix (RZV) 2 Dose Standard Series) 08/28/1999 RSV Immunization (1 - 1-dose 75+ series) 2024 Covid-19 vaccine series ( - 2023- season) 2025 Influenza vaccine 02/11/2025 Meningococcal B Vaccine Aged Out No l onger eligible based on patient's age to complete this topic Meningococcal Vaccine Aged Out No michael sapphire eligible based on patient's age to complete this topic Insurance [id number] MEDICAID MEDICARE [id number] MEDICAID MEDICARE [id number] MEDICAID MEDICARE [id number] MEDICAID MEDICARE [id number] MEDICAID MEDICARE [id number] MEDICAID MEDICARE [id number] MEDICAID MEDICARE Care Teams Bulldozer Press Operator Relationship Specialty Start Date End Date No, Pcp (Do Not Change Name) PCP - General 01/19/17
== END 2025-02-12 14:43 | disposition home or self-care (01) ==
LOC: HO.HMCH 13:31
PROVIDERS: PCP Internal Medicine; Visit Provider Internal Medicine
DX: I73.9 Peripheral vascular disease, unspecified (principal); E78.2 Mixed hyperlipidemia; I10 Essential (primary) hypertension; K21.9 Gastro-esophageal reflux disease without esophagitis; K59.09 Other constipation

== ENCOUNTER → 2025-02-12 13:30 | Outpatient (BNVA) | payer OTHER, SELFPAY | PROVIDERS: PCP Internal Medicine; Visit Provider Internal Medicine | DX: I10 Essential (primary) hypertension (principal); E78.2 Mixed hyperlipidemia; I73.9 Peripheral vascular disease, unspecified; K21.9 Gastro-esophageal reflux disease without esophagitis; K59.00 Constipation, unspecified; K59.09 Other constipation | CPT/HCPCS: 96127; 99212 ==

== ENCOUNTER 2025-04-03 10:00 | Outpatient (AMB) | payer OTHER, SELFPAY ==
[2025-04-03 10:47] VITALS: BP 110/58; PULSE 69; BMI 19.3
--- NOTE | 2025-04-03 10:47 | MHC.OFFVIS ---
Vital Signs 04/03/25 10:47 Height 5 ft 5 in Weight 115 lb 15.41 oz BMI 19.3 BP 110/58 L Blood Pressure Location Lt brachial Position Sitting Pulse 69 Pulse Source Monitor Intake Visit Reasons: r/s- 6mth f/up Intake Note: r/s-6 mth f/up Project Reservoir Engineer Required: Yes Project Reservoir Engineer Language: Staff Weapons Officer Name: [email or web address] Accompanied by: Spouse Allergies No Known Allergies Allergy (Verified 02/12/25 14:22) Medication List - Last Reconciled 04/03/25 by Jus Callejas MD amlodipine 10 mg PO DAILY aspirin (Adult Aspirin Regimen) 81 mg PO DAILY 90 days atorvastatin 20 mg PO DAILY 90 days [Back brace As directed] chlorthalidone 25 mg PO DAILY cilostazol 50 mg PO BID 90 days clotrimazole 1% (Antifungal (clotrimazole)) 1 appl topical BID 2 weeks docusate sodium 100 mg PO BID 90 days [hand held shower head As directed] lisinopril 20 mg PO DAILY 90 days meloxicam 15 mg PO DAILY 90 days metoprolol tartrate 50 mg PO BID 90 days multivitamin 1 tab PO DAILY 90 days omeprazole 20 mg PO BID 90 days [Shower head extension As directed] simethicone (Gas Relief (simethicone)) 250 mg (2 x 125 mg) PO BID PRN 30 days [Suction grab bars As directed] HPI Comments Details: Very pleasant 74-year-old gentleman with background history of coronary arteries bypass surgery performed in 2012. It appears he has 3 bypasses with FAULKNER to LAD, vein graft to diagonal and vein graft to OM. Based on records at [facility] his ejection fraction was initially low but as of an echocardiogram in 2018 his LVEF is 50-55% with inferior scar. He said before CABG he had burning chest discomfort with exercise. This has not happened since the bypass surgery. In 2013 he had peripheral angiography by Dr. Nixon and underwent right common iliac as well as left external iliac artery stenting. 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 He also had severe right SFA stenosis at that time. He is complaining that he has leg pain when he walks 1 block. He is pointing to thighs as well as both calves. No open wounds or ulcers on the feet. No nighttime symptoms. He has been compliant with medications. He does not smoke but is a former smoker. At this stage he was referred for ankle-brachial index and ultrasound assessment. ABIs were abnormal and he was found to have a high-grade stenosis in the right SFA and occluded left SFA. 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 He returns for f/u. 07/21/22: He has been doing well and does not have significant claudication. He is complaining of anorexia and weight loss. He has never had a colonoscopy. He has some GI upset which can be due to cilostazol but he has been experiencing anorexia and weight loss. We referred him to GI for further work up. It appears he did not show up for the appointment. 12/15/22: He is here for follow-up. He is saying that things are stable he still has mild claudication but does not have any progressive symptoms. He is tolerating the us last dose all at 50 mg twice a day. He continues to have anorexia and does not feel like eating anything. He never had any colonoscopy. We discussed about previous referral to GI and he is saying that he has not received any calls. We will arrange an appointment for him. No chest discomfort shortness of breath. 04/25/23: He returns for follow-up. He is denying chest discomfort. He is saying that his claudication has improved since he has been taking cilostazol. Taking medications regularly. He has seen GI and will be considering EGD. He was also advised to do colonoscopy but he has not made up his mind. 10/24/2023: He returns for follow-up. Denying any chest discomfort shortness of breath. He continues to get some claudication but saying that he can walk up to 1-1/2 block and then gets claudication symptoms. He is tolerating cilostazol. Blood pressure is elevated and manual recheck by myself was 150/70. He has been taking medications regularly otherwise. 01/16/2024: He is here for follow-up. He is denying any chest pain or shortness of breath. Blood pressure is well controlled. He is saying he is able to walk a block. On cilostazol. He underwent barium swallow which is showing concern for achalasia. He has been getting some issues with swallowing and episodes where he choked. I have discussed with GI and he will be given an urgent appointment. 05/23/2024: He returns for follow-up. He has been using cilostazol and is able to walk 2-3 blocks at this stage. Denying any chest discomfort shortness of breath. Overall doing quite well. Blood pressure is well controlled. 09/26/2024: He is here for follow-up. He is saying that he goes up and down stairs multiple times during the day without any problems. No chest discomfort shortness of breath. His anginal symptoms were a burning sensation in the chest which he has not encountered since coronary artery bypass surgery in 2012. He is taking cilostazol and is denying any significant claudication. He is planning to go to [place] and plans to walk and exercise more there. 04/03/2025: He is here for follow-up. Denying any chest discomfort shortness of breath. He continues to get some claudication but mostly with significant exertion. In day-to-day life he is stable. Taking medications regularly. He had previously had weight loss and was referred to GI but never saw GI. I have discussed with him again and he is saying that he does not want to do any testing currently. [facility] Medical History Stable angina Surgical History S/P CABG x 3 Family History Father No problems noted. Mother No problems noted. Social History Housing: House Alcohol intake: former Patient Tobacco Use Status: Former Tobacco user Years Smoked: 30+ e-Cigarette/Vaping Use: Never Used Second Hand Smoke Exposure: No service: No Current occupational status: disabled Cognitive needs: No Hearing needs: No Vision needs: No Physical Exam Vital Signs: Last Vital Signs Pulse 69 04/03/25 10:47 BP 110/58 L 04/03/25 10:47 BMI result Body Mass Index 19.3 GENERAL APPEARANCE: in no acute distress, well developed, well nourished. HEENT: unremarkable. HEAD: normocephalic, atraumatic. NECK/THYROID: no carotid bruit, no jugular venous distention. SKIN: no suspicious lesions, warm and dry. HEART: no murmurs, regular rate and rhythm, S1, S2 normal. LUNGS: clear to auscultation bilaterally. ABDOMEN: normal, bowel sounds present, soft, nontender, nondistended. EXTREMITIES: no clubbing, cyanosis, or edema. NEUROLOGIC: nonfocal, alert and oriented. Office Procedures EKG Details: Sinus rhythm 69 beats per minute with first-degree AV block SC interval 272 milliseconds, normal axis, inferior T-wave inversions, anteroseptal infarct, QTC 407 milliseconds. [id number], Complete Assessment & Plan Assessment & Plan (1) HTN (hypertension): Code(s): I10 - Essential (primary) hypertension Category: Medical Qualifiers: Hypertension type: essential hypertension Qualified Code(s): I10 - Essential (primary) hypertension (2) HLD (hyperlipidemia): Code(s): E78.5 - Hyperlipidemia, unspecified Category: Medical Qualifiers: Hyperlipidemia type: mixed hyperlipidemia Qualified Code(s): E78.2 - Mixed hyperlipidemia (3) PVD (peripheral vascular disease): Comment: As below Code(s): I73.9 - Peripheral vascular disease, unspecified Category: Medical (4) S/P CABG x 3: Comment: Stable Code(s): Z95.1 - Presence of aortocoronary bypass graft Category: Surgical Plan [age] year gentleman with background history of coronary artery bypass grafting and peripheral vascular disease. He is here for follow-up. He is saying he is stable and has no symptoms. His anginal symptoms were a burning sensation in the chest which he has not had since CABG. We have been managing his lower extremity claudication symptoms with cilostazol and he has been doing okay. Once again I have advised him to continue exercise as that will definitely help his PVD. Overall clinically stable. No heart failure symptoms. Follow-up with us in 6 months. Thank you for allowing me to participate in the care of your patient. Please feel free to contact me if you have any questions. Coding Level of Care Code Est Pt Level 4 (45589) Diagnoses Essential hypertension I10 Hypertension type: essential hypertension Mixed hyperlipidemia E78.2 Hyperlipidemia type: mixed hyperlipidemia PVD (peripheral vascular disease) I73.9 S/P CABG x 3 Z95.1 CPT Codes EKG - CPT: 46249-[id number], Complete ([id number])
--- OUTSIDE RECORDS SUMMARY | 2025-04-03 12:06 | XMS_ITS | Clinical Summary ---
Author Organization [address] Address [address] [place] [phone] Phone Care Team Providers Care Document Preparer Microfilming Name Role Phone No, Pcp (Do Not [...] - 1-dose 75+ series) 2024 Influenza vaccine 01/11/2025 Covid-19 vaccine series (1 - 2024- season) 2025 Meningococcal B Vaccine Aged Out No l onger eligible based on patient's age to complete this topic Meningococcal Vaccine Aged Out No michael sapphire eligible based on patient's age to complete this topic Insurance [id number] MEDICAID MEDICARE [id number] MEDICAID MEDICARE [id number] MEDICAID MEDICARE [id number] MEDICAID MEDICARE [id number] MEDICAID MEDICARE [id number] MEDICAID MEDICARE [id number] MEDICAID MEDICARE Care Teams Document Preparer Microfilming Relationship Specialty Start Date End Date No, Pcp (Do Not Change Name) PCP - General 01/19/17
== END 2025-04-03 11:04 | disposition home or self-care (01) ==
LOC: HO.HCS 10:01
PROVIDERS: PCP Internal Medicine; Visit Provider Internal Medicine Cardiovascular Disease
DX: I10 Essential (primary) hypertension (principal); E78.2 Mixed hyperlipidemia; I73.9 Peripheral vascular disease, unspecified; Z95.1 Presence of aortocoronary bypass graft
CPT/HCPCS: 93010; 99214

== ENCOUNTER → 2025-04-03 10:00 | Outpatient (BNVA) | payer OTHER, SELFPAY | PROVIDERS: PCP Internal Medicine; Visit Provider Internal Medicine Cardiovascular Disease | DX: I10 Essential (primary) hypertension (principal); E78.2 Mixed hyperlipidemia; I73.9 Peripheral vascular disease, unspecified; Z95.1 Presence of aortocoronary bypass graft | CPT/HCPCS: 93005; 99212 ==